=== PATIENT | female | born 1945 | race Caucasian/White ===

== ENCOUNTER 2019-04-10 08:39 | Inpatient (IN) | payer OTHER, SELFPAY ==
[2019-03-31 14:02] VITALS: BMI 24.3
[2019-04-10] VITALS (21 sets, daily range): BP systolic 118–202; BP diastolic 63–105; PULSE 83–135; RESP 8–20; TEMP 36.2–36.6; O2SAT 93–100; BMI 24.0
--- NOTE | 2019-04-10 | DI.RAD.S_ITS ---
PROCEDURE: XR LUMBAR SPINE 2-3V INDICATIONS: L4-5, L5-S1 TLIF TECHNIQUE: Fluoroscopic images were obtained during an operative procedure and submitted for interpretation following the completion of the procedure. COMPARISON: None. FINDINGS: These fluoroscopic images were performed for intraoperative localization. On these images, bilateral pedicle screws are seen at the L4, L5, and S1 levels. Vertical fixation rods are seen. Disc spacers are seen at L4-L5 and L5-S1. Please correlate with intraoperative findings. IMPRESSION: Normal intraoperative examination. Dictated by: Luis Manuel Amador M.D. on 04/10/2019 at 14:54 Approved by: Luis Manuel Amador M.D. on 04/10/2019 at 15:02
[2019-04-10] MEDS: LACTATED RINGERS 1,000 ML 42 ML IV ×2 (09:00→12:29)
[2019-04-10] MEDS: ALBUTEROL/IPRATROPIUM 3 ML AMPUL INH (10:26)
--- NOTE | 2019-04-10 10:51 | PM.PREOP ---
Pre-operative Note Interval Note History & Physical reviewed/Exam performed by Physician: Yes Changes to H&P: No
[2019-04-10] MEDS: OXYMETAZOLINE NASAL SPRAY 30 ML 2 SPRAYS NASAL (11:14)
[2019-04-10] MEDS: CEFAZOLIN 2 GM/100 ML FROZ.PIGGY IV (11:23)
--- NOTE | 2019-04-10 12:07 | SUR.OPER ---
Prone on spine table, head in foam head support, padded chest and pelvic supports, gel pad at knees, lower legs supported by pillows; nipples, genitalia and toes free of pressure, arms secured on foam padded arm boards at <90 degrees abduction. Tape over blanket at thigh secured to table.
[2019-04-10] MEDS: BUPIVACAINE LIPOSOME 266 MG/20 ML VIAL INJ (12:14)
[2019-04-10] MEDS: BUPIVACAINE 0.25% W/ EPI 30 ML VIAL INJ (12:15)
--- NOTE | 2019-04-10 15:17 | P.OP_ITS ---
Operative Date/Time/Diagnoses Date of procedure: 04/10/19 Time of procedure: 11:55 Pre-op diagnosis: 1. L4-5, L5-S1 spinal stenosis 2. L4-5, L5-S1 spondylosis with radiculopathy Post-op diagnosis: same Procedure & Clinicians Procedure: 1. L4-5, L5-S1 Postero-lateral and posterior interbody fusion 2. L4-5, L5-S1 interbody cage placement. 3. L4-5, L5-S1 decompressive laminectomy with bilateral facetecomies 4. L4-5, L5-S1 Posterior segmental instrumentation 5. [place] of bone marrow from iliac crest 6. Utilization of microsurgical technique and operating microscope Same procedure as scheduled: Yes Indications: Patient has been having chronic back pain and worsening lumbar radiculopathy. Patient failed multiple conservative management with worsening pain weakness and numbness in her lower extremity. Patient has been having difficulty performing activity of daily living. After discussing risks benefits of treatment options, patient elected proceed with surgery. Surgeon: Vance Whiting Outreach Assistant: Fozia Nelson Click Yes if Unassisted: No Anesthesia Type: General Operative Notes Closure Type: primary Specimen(s): none sent Prosthetic devices, grafts, tissues, transplants, or devices: Globus revolve screws, Rise cages Applied: catheter Estimated Blood Loss (mL): 100 Blood products transfused: none Procedure in detail: Patient was seen in the preoperative area. Risks and benefits of the surgery was discussed with the patient. Informed consent was obtained from the patient and placed in the chart. Surgical site was marked. Patient was taken to the operative room. General anesthesia was administered. Prophylactic antibiotic was given to the patient less than 30 min before the incision was made. Patient was placed into a prone position on the [place]gil table. Patient's back was then prepped and draped in the sterile fashion. Time- out was performed at this time. Using AP and lateral C-arm imaging the interval between L4-S1 was identified and marked on patient's back. A 2 inch incision 2 in from midline was made on the left side first. The fascia was incised in line with skin incision. Globus MARS retractors was placed inside the incision and docked onto the L4 and L5 lamina. Using microsurgical technique and operating microscope, a L4 and L5 laminectomy and L4-5 L5-S1 facetectomy was performed using a [place] rongeur. Patient was found have significant central and neural foramen stenosis at both levels which was fully decompressed after the laminectomy facetectomy was completed. During the process of decompression more than 75% of bilateral L4-5 L5-S1 facets were r emoved in order to decompress the spinal canal and the lateral recess. The L4-5 L5-S1 level was grossly unstable after the decompression was completed and requiring the fusion procedure. The disc space at L4-5, L5-S1 was identified. And a total diskectomy was performed at L4-5, L5-S1 level. The endplates were decorticated using a rasp and shaver. The total diskectomy and decortication was performed at L4-5, L5-S1 level in order to to accomplish a L4-5, L5-S1 fusion. The local bone from the laminectomy and facetectomy was saved for local bone grafting. After the total diskectomy and decortication was completed, Bio4 bone graft material was combined with local bone that was harvested earlier. At this time, a separate skin is incision was made over the iliac crest. A Jamshidi needle was inserted into the iliac crest through a separate skin incision. 5 cc of bone marrow aspiration was obtained through the separate skin incision using a Jamshidi needle from the iliac crest. The bone marrow aspiration was combined with local bone and the Bio4 bone grafting material. The bone grafting material was placed into the L4-5, L5-S1 interbody space along with two cages, one expandable cage at each level. The cages were expanded to their maximum height using the torque limiting screwdriver. At this time a mirror image incision was made on the right side. The fascia was incised in line with the skin incision. Globus MARS retractor was inserted and docked onto the L4-5, L5-S1 posterolateral gutter. Using the power drill, posterior-lateral decortication was performed at L4-5, L5-S1 level until bleeding cortical bone was identified. The remaining bone grafting material was placed into the L4-5 L5-S1 posterior lateral gutter he order to accomplish posterolateral fusion at the L4-5 L5-S1 levels. Using the double C-arm technique, pedicle screws were placed into the L4, L5, S1 pedicles bilaterally. This was done by placing the Jamshidi needle into the pedicles, then placing the guidewires over the Jamshidi needle, and finally placing the cannulated screws over the guidewires bilaterally. After the pedicle screws were placed, 2 titanium rods was locked into the heads of the pedicle screws using locking caps and torque limiting screwdriver. Total 6 pedicles screws were placed. After all the hardware was placed, and confirmed with AP and lateral C-arm imaging, the wound was then irrigated with sterile normal saline and packed with Ray-Khoa gauze for 3 min to accomplish hemostasis. After the gauze was removed the deep fascia was closed with #1 Vicryl suture. The subcutaneous layer was closed with 2-0 Vicryl. The skin was closed with skin sade. Patient tolerated the procedure well. There were no complications.
[2019-04-10] MEDS: HYDROMORPHONE 2 MG INJ IV ×4 (15:27→15:42)
--- NOTE | 2019-04-10 15:34 | SUR.PHASEI ---
Airway out [id number]
[2019-04-10] MEDS: LORazepam 2 MG/ML INJ 0.25 MG IV (15:51)
--- NOTE | 2019-04-10 15:53 | SUR.PHASEI ---
Medicated with dilaudid and lorazepam.
--- NOTE | 2019-04-10 16:53 | SUR.PHASEI ---
Bedside report given to Walter Fierro. Transferred care of pt to Walter Fierro at this time in stable condition. pt appears comfortable at this time. pt arousable to voice when spoken to.
[2019-04-10] MEDS: ALBUTEROL 2.5 MG/3 ML NEB (ADULT) INH (17:13)
--- NOTE | 2019-04-10 18:21 | PC.NURSE ---
Addendum entered by Ileana Ferris R.N. 04/10/19 20:31: Nurse practioner updated on WBC and Lactate. Awaiting new orders. Addendum entered by Ileana Ferris R.N. 04/10/19 19:51: 1850 addendum - ABG also drawn during rapid response, Dr. Curtis saw results. 1944 - Patient 94% on Room air. Addendum entered by Ileana Ferris R.N. 04/10/19 19:36: 1850 - Patient noted to have change in breathing and retractions. Also was desatting to 88% on 6L simple mask 50%. Respiratory therapist called to assess patient. Patient unresponsive to sternal rubs. Pupils pinpoint. Last reported dilaudid given in PACU at 1542 and ativan in PACU at 1551. Rapid response called at 1854. Dr. Curtis responded to bedside. Order received for 2MG Narcan which was immediately given IV. Orders also received for 1L NS bolus. EKG, labs, and chest x ray completed per Dr. Curtis's orders. Patient hypertenisve and tachycardic. Patient awake and pupils now equal, reactive and 3mm. Alert and oriented, but complaining of pain to back. Physician visualized chest x ray and EKG. ST depression noted in EKG. Dr. Jalloh called and updated on episode. Dr. Jalloh and Dr. Curtis discussed situation on phone with eachother. 1944 - Patient now normotensive and heart rate 104. Discussed pain medication options with Dr. Curtis. Stated ok to give IV dilaudid as ordered now and to start PO pain meds. at bedside throughout. Original Note: 1744 - Patient brought to room 103 in bed from PACU by nursing staff. Patient very drowsy, but awakens appropriately when spoken to. 92% on 6L O2 via mask. Oriented to room and call light, call light within reach and bed alarm on. Family member at bedside.
[2019-04-10] MEDS: SODIUM CHLORIDE 0.9% 1,000 ML 100 ML IV (18:32)
[2019-04-10] MEDS: NALOXONE 1 MG/ML SYRINGE 2 MG IV (19:01)
--- NOTE | 2019-04-10 19:03 | DI.RAD.S_ITS ---
PROCEDURE: XR CHEST 1V INDICATIONS: breathing issues after surgery TECHNIQUE: One view of the chest was acquired. COMPARISON: [facility], CR, XR CHEST 2VW, 11/25/2015, 16:15. FINDINGS: Surgical changes and devices: None. Lungs and pleura: Lungs are clear. There is hyperinflation of the lungs with flattening of the hemidiaphragms compatible with COPD. No pleural effusions or pneumothorax. Mediastinum: Mediastinal contours appear normal. Heart size is normal. Bones and chest wall: No suspicious bony lesions. Overlying soft tissues appear unremarkable. IMPRESSION: 1. No acute cardiopulmonary disease. 2. Findings compatible with COPD redemonstrated. Dictated by: Tyler Almazan M.D. on 04/10/2019 at 19:44 Approved by: Tyler Almazan M.D. on 04/10/2019 at 19:45
[2019-04-10] MEDS: SODIUM CHLORIDE 0.9% 1,000 ML 1000 ML IV ×2 (19:10→21:26)
[2019-04-10 19:16] LABS: Fractionated Inspired Oxygen 50; HCO3 ABG 24 mmol/L (22-26); Oxygen Saturation ABG 96 % (95-100); PCO2 ABG 69.3 mmHg (35-45); PO2 ABG 106 mmHg (80-100); TCO2 ABG 26 mmol/L (21-31); pH ABG 7.15 (7.35-7.45)
[2019-04-10 19:29] LABS: BUN Creatinine Ratio 23.3 (6-22); Blood Urea Nitrogen 21 mg/dL (7-17); Carbon Dioxide 25 mmol/L (22-32); Chloride 104 mmol/L (98-107); Creatine Kinase 469 U/L (30-135); Estimated Glomerular Filt Rate > 60.0 mL/min (>60); Glucose 235 mg/dL (80-110); HEMOLYSIS < 15 (0-50); Potassium 4.2 mmol/L (3.4-5.1); Sodium 140 mmol/L (137-145)
[2019-04-10 19:34] LABS: Hematocrit 42.3 % (36-46); Hemoglobin 13.7 g/dL (12.0-16.0); Mean Corpuscular HGB Conc 32.3 % (30-36); Mean Corpuscular Volume 86.7 fL (80-100); Platelet Count 351 X10^3/uL (150-400); Red Blood Cell Count 4.87 X10^6/uL (4.0-5.2); Red Cell Distribution Width 12.6 % (11.6-14.8); White Blood Cell Count 28.7 X10^3/uL (4.5-11.0)
[2019-04-10 19:35] LABS: Add Manual Diff / Slide Review YES
[2019-04-10] MEDS: OXYCODONE IR 5 MG TABLET 10 MG PO (19:37)
[2019-04-10] MEDS: HYDROMORPHONE 1 MG INJ 0.5 MG IV (19:37)
[2019-04-10 19:40] LABS: Troponin I < 0.012 ng/mL (0.01-0.034)
[2019-04-10 19:43] LABS: CKMB % Relative Index 1.4 % (1.5-5.0)
[2019-04-10 20:01] LABS: Neutrophils Absolute Manual 23821 /uL (3000-5900); Total Cells Counted 100
[2019-04-10 20:02] LABS: Anisocytosis 1+; Poikilocytosis 1+; Tear Drop Cells 1+
--- NOTE | 2019-04-10 20:13 | PM.CN ---
History of Present Illness Consult details Date Patient Seen: 04/10/19 Time Patient Seen: 19:00 Chief complaint: Translaminar Interbody Fusion/Laminotomy Reason for consult: rapid response team for acute hypoxemic hypercarbic respiratory failure Requesting provider: Vance Whiting Narrative: Yane Scales is a 73 year old female with a PMH of arthritis, HLD, depression, hypothyroidism who underwent lumbar laminectomy and fusion earlier today. Patient had large amounts of opiates during the procedure per report and following surgery she remained sleepy but she was hemodynamically stable and transferred to the hospital floor uneventfully. P[employer] B[employer] LADLE was called around 7pm after patient had a change in her breathing pattern where she became agonal. Upon arrival patient was not alert, she was tachycardic (sinus) into the 130s and hypertensive, she was saturating in the upper 90s on a mask. She was bradypnic and breathing appeared agonal. Her breath sounds were diminished and there were fine bibasilar crackles bilaterally. She was not responsive and her pupils were pinpoint. She received Narcan with rapid improvement in mental status and breathing. ABG showed a profound respiratory acidosis. Basic lab evaluation was sent. EKG showed sinus tachycardia with previous RBBB, there appeared to be possible ST depressions in the anterior leads that were new from previous examinations. I ordered her for a bolus of fluid and her HR and BP improved, and on telemetry there appeared to be improvement in the ST depressions with improvement in tachycardia. When patient was more alert, she denied any chest pain, pressure, shortness of breath. She has been having a runny nose and recent upper respiratory symptoms as well as a non-productive cough prior to her surgery today. Her initial lab evaluation shows a WBC of 28.7, plt 351. ABG showed pH of 7.15 with PCO2 of 69. Lactate of 3. Negative troponin and glucose of 235. CXR showed no acute pulmonary process but noted redemonstration of COPD. [facility] Medical History (Updated 03/31/19 @ 14:19 by Deedee Perez RN) Arthritis (Acute) Back pain (Acute) Depression (Acute) Foot fracture, right (Acute ~2008) GERD (gastroesophageal reflux disease) (Acute) HLD (hyperlipidemia) (Acute) Hypothyroid (Acute) Influenza (Acute ~2018) RBBB (right bundle branch block) (Acute) Sciatica (Acute) Surgical History (Updated 03/31/19 @ 14:19 by Deedee Perez RN) History of photorefractive keratectomy (PRK) (Acute) Social History household members: spouse Smoking Status: Former smoker alcohol intake: current Meds Home Medications and Allergies Home Medications Medication Instructions Recorded Confirmed Type acetaminophen [Tylenol Arthritis 1,300 mg PO BID 03/31/19 03/31/19 History Pain] atorvastatin 10 mg PO BEDTIME 03/31/19 03/31/19 History celecoxib 200 mg PO DAILY 03/31/19 04/10/19 History levothyroxine 75 mcg PO BEDTIME 03/31/19 03/31/19 History venlafaxine 37.5 mg PO BEDTIME 03/31/19 03/31/19 History Allergies Allergy/AdvReac Type Severity Reaction Status Date / Time tetracycline Allergy Severe Hives Verified 04/10/19 09:19 Review of Systems Review of Systems ROS Unobtainable: All systems reviewed & are unremarkable except as noted in HPI and below Exam Vital Signs (past 8 hours): - 04/10/19 15:09 04/10/19 15:14 04/10/19 15:19 Temperature 97.1 F L Pulse Rate 86 85 87 Respiratory Rate 12 11 L 12 Blood Pressure 142/71 H 133/71 139/80 Pulse Oximetry 95 95 96 04/10/19 15:24 04/10/19 15:38 04/10/19 15:44 Temperature 97.9 F Pulse Rate 94 H 96 H 93 H Respiratory Rate 10 L 13 10 L Blood Pressure 155/64 H 145/82 H Pulse Oximetry 95 100 96 04/10/19 15:58 04/10/19 16:04 04/10/19 16:19 Temperature 97.7 F Pulse Rate 91 H 87 92 H Respiratory Rate 10 L 9 L 8 L Blood Pressure 137/63 118/76 150/78 H Pulse Oximetry 93 98 98 04/10/19 16:34 04/10/19 16:49 04/10/19 17:05 Temperature Pulse Rate 97 H 100 H 109 H Respiratory Rate 9 L 10 L 15 Blood Pressure 141/72 H 137/88 140/75 Pulse Oximetry 96 96 96 04/10/19 17:20 04/10/19 17:30 04/10/19 18:10 Temperature 97.6 F 97.6 F Pulse Rate 105 H 112 H 110 H Respiratory Rate 12 11 L 10 L Blood Pressure 137/80 124/86 157/91 H Pulse Oximetry 94 96 95 04/10/19 18:30 04/10/19 19:02 04/10/19 19:10 Temperature 97.4 F L Pulse Rate 113 H 135 H 125 H Respiratory Rate 15 Blood Pressure 179/91 H 202/105 H 144/81 H Pulse Oximetry 93 04/10/19 19:27 Temperature Pulse Rate 105 H Respiratory Rate 20 Blood Pressure 136/79 Pulse Oximetry 93 Oxygen Delivery Method Simple Mask Oxygen Flow Rate 0 Narrative Exam Narrative: GENERAL APPEARANCE: Well developed, well nourished, groggy female. SKIN: Inspection of the skin reveals no rashes, ulcerations or petechiae. HEENT: PERRL after narcan, prior to narcan pinpoint and minimally reactive. Dry oral mucosa. NECK: Supple and symmetric. There was no thyroid enlargement, and no tenderness, or masses were felt. CHEST: Normal AP diameter and normal contour without any kyphoscoliosis. LUNGS: Auscultation of the lungs revealed no wheezes, rhonchi. There are fine bibasilar crackles bilaterally in the bases. CARDIOVASCULAR: Tachycardic, with regular rhythm. Soft 2/6 systolic murmur appreciated. ABDOMEN: Soft and nontender with normal bowel sounds. No ascites was noted. MUSCULOSKELETAL: There was no tenderness or effusions noted. Muscle strength and tone were normal. EXTREMITIES: No cyanosis, clubbing or edema. NEUROLOGIC: Alert. Normal affect. Objective Labs Result Diagrams: 04/10/19 19:10 04/10/19 19:10 Labs: Laboratory Results - last 24 hr 04/10/19 04/10/19 04/10/19 18:10 18:59 19:10 WBC 28.7 H RBC 4.87 Hgb 13.7 Hct 42.3 MCV 86.7 MCH 28.0 MCHC 32.3 RDW 12.6 Plt Count 351 Neut % (Auto) Not Reportable Lymph % (Auto) Not Reportable [place] % (Auto) Not Reportable Eos % (Auto) Not Reportable Baso % (Auto) Not Reportable Lymph # (Auto) Not Reportable [place] # (Auto) Not Reportable Baso # (Auto) Not Reportable Total Counted 100 Seg Neutrophils % 83.0 H Lymphocytes % (Manual) 11.0 L Monocytes % (Manual) 4.0 Eosinophils % (Manual) 2.0 Neutrophils # (Manual) 80735 H RBC Morphology See below Poikilocytosis 1+ H Anisocytosis 1+ H Tear Drop Cells 1+ H ABG pH 7.15 L* ABG pCO2 69.3 H* ABG pO2 106 H ABG HCO3 24 ABG Total CO2 26 ABG O2 Saturation 96 ABG Base Excess -5.0 L FiO2 50 Sodium Potassium Chloride Carbon Dioxide BUN Creatinine Estimated GFR BUN/Creatinine Ratio Glucose Lactate Calcium Total Creatine Kinase CK-MB (CK-2) CK-MB (CK-2) Rel Index Troponin I Nasal Screen MRSA (PCR) Negative for mrsa 04/10/19 04/10/19 19:10 19:10 WBC RBC Hgb Hct MCV MCH MCHC RDW Plt Count Neut % (Auto) Lymph % (Auto) [place] % (Auto) Eos % (Auto) Baso % (Auto) Lymph # (Auto) [place] # (Auto) Baso # (Auto) Total Counted Seg Neutrophils % Lymphocytes % (Manual) Monocytes % (Manual) Eosinophils % (Manual) Neutrophils # (Manual) RBC Morphology Poikilocytosis Anisocytosis Tear Drop Cells ABG pH ABG pCO2 ABG pO2 ABG HCO3 ABG Total CO2 ABG O2 Saturation ABG Base Excess FiO2 Sodium 140 Potassium 4.2 Chloride 104 Carbon Dioxide 25 BUN 21 H Creatinine 0.90 Estimated GFR > 60.0 BUN/Creatinine Ratio 23.3 H Glucose 235 H Lactate 3.0 H Calcium 8.0 L Total Creatine Kinase 469 H CK-MB (CK-2) 6.70 H CK-MB (CK-2) Rel Index 1.4 L Troponin I < 0.012 Nasal Screen MRSA (PCR) Assessment & Plan Assessment & Plan narrative: Yane Scales is a 73 year old female with a PMH of arthritis, HLD, depression, hypothyroidism who underwent lumbar laminectomy and fusion earlier today, P[employer] B[employer] LADLE was called for change in her respiratory status. She was likely over-sedated with medications possibly with underlying COPD and recent URI symptoms which caused her to become hypercarbic and hypoxemic. She improved rapidly with narcan. 1. Acute hypercarbic respiratory failure - ABG with profound respiratory acidosis secondary to hypercarbia from likely oversedation after surgery. She may have underlying COPD and chronic hypercarbic respiratory failure but this is not known and patient does not have a history of known COPD. Her respiratory status improved after narcan. She has recent URI symptoms and other than leukocytosis no other symptoms of recent pneumonia and chest xr is unremarkable. - Repeat ABG in one-two hours after narcan to see if improvement in pCO2. - oxygen titration to 88-92% only - continue to follow CBC as this may be reactive to the respiratory event - Respiratory eval and treat - consider outpatient PFTs for COPD diagnosis. - obtain respiratory panel 2. s/p lumbar spinal surgery - limit opiates to dilaudid 0.5 mg prn and prn oxycodone oral. - would hold benzodiazepines 3. Leukocytosis, acute - likely reactive secondary to respiratory failure. No evidence of PNA on CXR. - continue to follow CBC - will add procalcitonin to labs 4. tachycardia, acute - likely secondary to hypovolemia after operative interventions. She had ST depressions on EKG that seemed to improve on telemetry. This is likely indicative of demand due to tachycardia. She denied chest pain after narcan and this improved. - repeat EKG to see if resolution of ST depression. - repeat troponin to ensure no demand ischemia / type II AL despite initial troponin as this will take a few hours to peak after the event. - consider outpatient stress testing given tachycardia induced ST depressions and no peaked troponins. - continue IV fluids overnight after initial bolus given. Medicine service will continue to follow.
[2019-04-10] MEDS: ACETAMINOPHEN 325 MG TABLET 650 MG PO (20:15)
[2019-04-10] MEDS: hydrOXYzine pamoate 25 MG CAPSULE PO (20:15)
[2019-04-10] MEDS: ATORVASTATIN 10 MG TABLET PO (20:18)
[2019-04-10] MEDS: LEVOTHYROXINE 75 MCG TABLET PO (20:18)
[2019-04-10] MEDS: VENLAFAXINE 37.5 MG TABLET PO (20:19)
[2019-04-10 20:31] LABS: Fractionated Inspired Oxygen 21; HCO3 ABG 19 mmol/L (22-26); Oxygen Saturation ABG 93 % (95-100); PCO2 ABG 27.7 mmHg (35-45); PO2 ABG 62 mmHg (80-100); TCO2 ABG 20 mmol/L (21-31); pH ABG 7.44 (7.35-7.45)
[2019-04-10 21:18] LABS: Reflexed Lactate in 2 Hours Y
[2019-04-10 21:21] LABS: Magnesium 1.9 mg/dL (1.6-2.3)
[2019-04-10 21:24] LABS: C-Reactive Protein Quant 0.7 mg/dL (<1.0)
[2019-04-10 21:42] LABS: Bacteria Urine None Seen
[2019-04-10 21:43] LABS: Appearance Urine UA CLEAR; Bilirubin Urine UA NEGATIVE (NEGATIVE); Glucose Urine UA TRACE g/dL (Negative); Ketones Urine UA NEGATIVE (NEGATIVE); Leukocyte Esterase Urine UA NEGATIVE (NEGATIVE); Nitrite Urine UA NEGATIVE (Negative); Occult Blood Urine UA 3+ (Negative); Protein Urine UA NEGATIVE (Negative); Urobilinogen Urine UA 0.2 E.U./dL (0.2)
[2019-04-10 21:45] LABS: pH Urine UA 5.5 (4.5-8.0)
[2019-04-10 21:48] LABS: Color Urine UA Straw
[2019-04-10 21:49] LABS: Culture Indicated Urine Cult Not Indicated; RBC Urine 0-1/HPF (0-5/HPF); WBC Urine 30-100/HPF (0-5/HPF)
--- NOTE | 2019-04-10 22:04 | PC.NURSE ---
Pain assessment post opioid reversal: P: Patient stated pain was at a 9 on the pain scale post opioid reversal. She was visibly shaking and showing signs of extreme pain. I: non pharmaceutical methods were attempted, such as turning off the lights, playing music, repositioning, and distraction techniques. After five minutes of this, the patient stated, this is not working, I need something for the pain. This student nurse and the registered nurse gave the patient 25 mg PO Vistaril and 650 mg PO Tylenol. E: The patient began to show relief and fell asleep approximately 45 mins later. She rated her pain at a 7 at 2018. Safety: Bed is low and locked and the patients call light is within reach. She has been advised to call before getting out of bed and if she needs anything.
[2019-04-10 22:23] LABS: Procalcitonin < 0.05 ng/mL (<0.5)
[2019-04-10 23:05] LABS: Adenovirus Not Detected (Not Detect); Coronavirus 229E Not Detected (Not Detect); Coronavirus HKU1 Not Detected (Not Detect); Coronavirus NL 63 Not Detected (Not Detect); Coronavirus OC43 Not Detected (Not Detect)
[2019-04-10 23:06] LABS: Bordetella pertussis Not Detected (Not Detect); Chlamydophila pneumoniae Not Detected (Not Detect); Human Metapneumovirus Not Detected (Not Detect); Human Rhinovirus/Enterovirus Detected (Not Detect); Influenza A Not Detected (Not Detect); Influenza B Not Detected (Not Detect); Mycoplasma pneumoniae Not Detected (Not Detect); Parainfluenza Virus 1 Not Detected (Not Detect); Parainfluenza Virus 2 Not Detected (Not Detect); Parainfluenza Virus 3 Not Detected (Not Detect); Parainfluenza Virus 4 Not Detected (Not Detect); Respiratory Syncytial Virus Not Detected (Not Detect)
[2019-04-11] VITALS (16 sets, daily range): BP systolic 110–151; BP diastolic 48–81; PULSE 88–101; RESP 10–21; TEMP 36.8–38.3; O2SAT 88–97
--- NOTE | 2019-04-11 00:18 | PC.NURSE ---
Received patient asleep in bed. Pt easily awakens to voice. A/O X 3 in NAD. Pleasant and calm, talkative with staff. C/O pain 3/10 - tolerable. Repositioned for comfort. VSS, afebrile. Tele ST - low 100's. Sp02 95% 2LNC, breathing equal and unlabored. Back dressing CDI. CMS intact, reports baseline pre-operative numbness to lower extremities unchanged. Repeat lactic trending down. Call light in reach.
[2019-04-11 01:31] LABS: Reflexed Lactate in 2 Hours Y
[2019-04-11 02:05] LABS: Lactate 2HR (Lactic Acid Rflx) 1.7 mmol/L (0.7-2.1)
[2019-04-11] MEDS: SODIUM CHLORIDE 0.9% 1,000 ML 125 ML IV (04:22)
[2019-04-11] MEDS: OXYCODONE IR 5 MG TABLET 10 MG PO ×4 (04:24→20:36)
[2019-04-11 05:03] LABS: Add Manual Diff / Slide Review NO; Basophils Absolute Auto 0 /uL (0-100); Eosinophils Absolute Auto 0 /uL (0-450); Hematocrit 36.5 % (36-46); Hemoglobin 12.1 g/dL (12.0-16.0); Lymphocytes Absolute Auto 1500 /uL (1100-4500); Lymphocytes Percent Auto 8.9 % (25-40); Mean Corpuscular HGB Conc 33.1 % (30-36); Mean Corpuscular Hemoglobin 28.1 PG (26-34); Mean Corpuscular Volume 84.9 fL (80-100); Monocytes Absolute Auto 1100 /uL (0-900); Monocytes Percent Auto 6.9 % (3-14); Neutrophils Absolute Auto 13800 /uL (1500-7000); Neutrophils Percent Auto 84.2 % (50-75); Platelet Count 247 X10^3/uL (150-400); Red Cell Distribution Width 12.3 % (11.6-14.8); White Blood Cell Count 16.4 X10^3/uL (4.5-11.0)
[2019-04-11 05:09] LABS: BUN Creatinine Ratio 18.8 (6-22); Blood Urea Nitrogen 15 mg/dL (7-17); Calcium 7.4 mg/dL (8.4-10.2); Carbon Dioxide 28 mmol/L (22-32); Chloride 108 mmol/L (98-107); Estimated Glomerular Filt Rate > 60.0 mL/min (>60); Glucose 118 mg/dL (80-110); HEMOLYSIS < 15 (0-50); Lactate (Lactic Acid) 1.2 mmol/L (0.7-2.1); Potassium 4.3 mmol/L (3.4-5.1); Sodium 142 mmol/L (137-145)
[2019-04-11 05:20] LABS: Troponin I 0.048 ng/mL (0.01-0.034)
[2019-04-11 06:01] LABS: Procalcitonin 0.25 ng/mL (<0.5)
[2019-04-11] MEDS: hydrOXYzine pamoate 25 MG CAPSULE PO ×2 (10:58→20:36)
--- NOTE | 2019-04-11 11:06 | PT.IIE ---
Current Diagnoses Spondylolisthesis, lumbosacral region (04/10/19) Spinal stenosis, lumbar region without neurogenic claudication (04/10/19) Surgery Performed Operation Date: 04/10/19 10:45 Actual Procedures p L4-5,L5-S1 TLIF w/ posterior instrumentatoion - Vance Whiting MD Surgical History (Last Updated 03/31/19 @ 14:19 by Deedee Perez, RN) History of photorefractive keratectomy (PRK) (Acute) Medical History (Last Updated 03/31/19 @ 14:19 by Deedee Perez RN) Arthritis (Acute) Back pain (Acute) Depression (Acute) Foot fracture, right (Acute ~2008) GERD (gastroesophageal reflux disease) (Acute) HLD (hyperlipidemia) (Acute) Hypothyroid (Acute) Influenza (Acute ~2018) RBBB (right bundle branch block) (Acute) Sciatica (Acute) Physical Therapy Inpatient Evaluation/Re-Eval M1 PT/OT-IP Prior Functional Status Start: 04/11/19 10:36 Freq: NEEDED Status: Active Protocol: Document 04/11/19 09:40 (Rec: 04/11/19 11:05 [email or web address]) Medical Review Prior Functional Status Medical History Reviewed Yes Diet/Fluid Consistency Regular Communication no deficits noted. Able to make needs known. Mobility and Gait Pt stated she was independent for home and community mobility without AD. Bending over activities and walking uphill tend to be difficulty for her due to back pain. Activities of Daily Living and IADL's Pt was independent for all ADLs and IADLs without using AD. She is also able to drive. Social History Household Members spouse Living Arrangements House Number of Floors (Floors) Two Floors Number of Stairs To Enter/Railing? no MARÍA to front entrance 1STE from garage entrance Home Environment High Toilet,Walk in Shower, Built-In Shower Seat Home Equipment Front Wheel Walker,Straight Cane,Raised Toilet Seat w/ Armrests,Hand Held Shower,Grab Bars Near Toilet,Grab Bars In Shower Employment Status Retired Additional Social History Comment Pt lives with her who is also very active and independent. Pt states her will be able to assist if needed M2 PT-IP Current Condition Start: 04/11/19 10:36 Freq: NEEDED Status: Active Protocol: Document 04/11/19 09:40 (Rec: 04/11/19 11:05 [email or web address]) Physical Therapy Current Condition Current Condition Evaluation Date 04/11/19 Treatment Diagnosis L4-S1 TLIF, acute hypercarbic resp failure, decreased activity tolerance Onset Date 04/10/19 Precautions Lumbar Precautions Log Roll,No Twisting,Limit Bending,Lifting Restriction of 10 lbs,Gait Belt above Incisional Area Other Precautions Droplet precaution Weight Bearing Status Weight Bearing Status Full Weight Bearing M3 PT-IP Subjective Start: 04/11/19 10:36 Freq: NEEDED Status: Active Protocol: Document 04/11/19 09:40 HH (Rec: 04/11/19 11:05 [email or web address]) Subjective Physical Therapy Visit Type Type Initial Evaluation Visit Start Time 09:40 Visit Stop Time 10:15 Total Visit Minutes 35 Notes Per EMR, pt had a profound respiratory acidosis after sx and rapid response was called last night. Pt is currently evolving and becoming stable with VSS. Pt has 3L O2 upon assessment. Requested to get OOB for mobility. co-tx with SPT Mark. Number of ETYMOLOGY PROFESSOR Visits 0 Physical Therapy Visit Comments Patient Comments I feel a lot better today. Patient Goals To return home with . Therapy Pain Assessment Pain When Pain Assessed During Mobility Pain Present Pain Present Pain Reported Location lower back -bilateral legs Intensity 3 Scale Used Leonard-Burger (Faces) Description Acute Pain Management Techniques Modification of Treatment,Re- positioning,Timing of Activity with Medications M4 PT-IP Mobility and Gait Start: 04/11/19 10:36 Freq: NEEDED Status: Active Protocol: Document 04/11/19 09:40 HH (Rec: 04/11/19 11:05 [email or web address]) PT-Bed Mobility Assessment Rolling Type of Rolling Log Rolling,Roll to Right Level of Assist Contact Guard Assistance Supine to Sit Supine to Sit Minimal Assistance,Bedrails Scooting Scooting to Edge of Bed Contact Guard Assistance PT-Transfer Assessment Sit to and From Stand Sit to and from Stand Contact Guard Assistance,1 Person Assistance Equipment Transfer Assistive Device Gait Belt,Front Wheeled Walker Orthotic/Prosthetic Devices or Brace: No Transfers Transfer Destination Bed,Chair,Toilet Transfer Technique Stand Step Pivot Transfer Ability Level of Assist Contact Guard Assistance,Use of Upper Extremities Comments Mobility Comments Pt's BP maintained at 120-130s / 60s, HR 90-110 , SpO2= 88-94 % during mobility. Pt was in bed upon assessment who appears to be AxO x4. Educated pt on log roll method and post op precautions. Pt then completed log roll to R and sat up with min A. Pt demonstrates mild difficulty to push off through bed rail and bed from sidelying position (took about 10 seconds). She then scooted towards EOB and stood up with CGA and FWW. Pt also able to transfer to elevated toilet seat with CGA and proper hand placements on armrests. Pt demonstrates good descent from stand to sit with cueing without any signs of LOB. Left pt on the chair with call light and table within reach at the end of session. Gait Assessment Gait Gait Assistance Required: Standby Assistance Distance (Feet) 80 Able to Maintain Weight Bearing Status Yes During Gait Assistive Devices Assistive Device Gait Belt,Front Wheeled Walker Orthotic/Prosthetic Devices or Brace: No Gait Deviations General Gait Pattern Antalgic,Decreased Stride Length,Decreased Feet Clearance Factors Limiting Gait Function Factors Limiting Gait Function Decreased Activity Tolerance, Decreased Strength,Limited Range of Motion,Pain Comments Gait Comments Pt amb from bedside to bathroom then out to hallway for 1 lap. Pt was able to amb with FWW and SBA. She appears very steady and no signs of LOB. She stated that she overall amb slower than her baseline due to pain at this pain. Stair Climbing Assessment Comments Stair Climbing Comments did not assess PT-Balance Assessment Sitting Balance and Reactions Static Sitting Balance Ability Normal Dynamic Sitting Balance Ability Good Standing Balance and Reactions Static Standing Balance Ability Good Dynamic Standing Balance Ability Good Device Used FWW M5 PT-IP Objective Assessments Start: 04/11/19 10:36 Freq: NEEDED Status: Active Protocol: Document 04/11/19 09:40 (Rec: 04/11/19 11:05 [email or web address]) Orientation Orientation/Cognition Level of Alertness Alert Orientation Name,Age,Birthday,Month,Date, Year,Day of Week,Place, Situation Language Function Ability No Deficits Noted Safety Awareness Understands Safety Issues Memory Description Short Term Impaired Comments Pt needed multiple reminders of post op precautions (BLT) , but she was able to state I have to stay up straight Gross Range of Motion Upper Extremity ROM Assessment Within Functional Limits Lower Extremity ROM Assessment Within Functional Limits Strength Upper Extremity Strength Assessment Within Functional Limits Lower Extremity Strength Assessment Bilaterally Impaired Hip 4/5 Knee 4/5 Coordination Assessment Gross Coordination Gross Coordination WNL Sensation Assessment Sensation Gross Sensation WNL Muscle Tone Muscle Tone WNL Yes M6 PT-IP Treatment Start: 04/11/19 10:36 Freq: NEEDED Status: Active Protocol: Document 04/11/19 09:40 HH (Rec: 04/11/19 11:05 [email or web address]) Physical Therapy Treatment Education Education Provided Precautions,Weight Bearing Status,Post-Op Packet,Safety Other Treatments Other Treatment Performed standing marching in place with FWW Adjust pt's FWW and SPC for mobility use M7 PT-IP Assessment and Plan Start: 04/11/19 10:36 Freq: NEEDED Status: Active Protocol: Document 04/11/19 09:40 HH (Rec: 04/11/19 11:05 HH [email or web address]) PT Summary Assessment and Plan Potential Rehabilitation Potential Excellent Status of Condition at Evaluation Evolving Summary Impairments Pain,ROM,Strength,Balance,Bed Mobility,Transfers,Gait, Activity Tolerance Assessment Summary Pt is low complexity s/p POD 2 with L4-S1 TLIF. Per EMR, pt had a acute hypercarbic respiratory failure ( respiratory acidosis ) after sx and rapid response was called last night. Pt is currently evolving and becoming stable with VSS. She does sound congested with a hoarse voice who reports she had a cold prior to sx. Pt has 3L O2 upon assessment. Pt did fairly well with mobility who needed min A for bed mobility but SBA/CGA for transfers and amb with FWW. Pt's BP maintains at 120-130s/ 60s; HR 90-110; SpO2 88-94% without NC. Pt does require multiple reminders for her post op precautions but she is aware to keep her back straight. Pt overall appears progressing well, along with adequate DMEs at home. Pt is expected to be d/c home with assistance once she is medically stable. CG training should also be conducted to pt 's safety at home prior to d/c . Goals Bed Mobility Goal Standby Assistance Transfer Goal Standby Assistance Gait Goal Standby Assistance Gait Distance 200 Days to Meet Goals 5 Frequency of Treatment Frequency Of Treatment Twice a Day Treatment Plan Physical Therapy Treatment Plan Bed Mobility Training,Transfer Training,Gait Training, Therapeutic Exercise,Balance Retraining,Post Op Education, Discharge Planning,Hot or Cold Pack,Neuromuscular Re-ed Other Recommendations and Next Treatment monitor VSS Focus review precautions mobility as marce CG training Recommendations To Nursing Amount of Assist Needed 1 Person Assist Discharge Recommendations PT Discharge Recommendations Home with Assistance
[2019-04-11 12:02] LABS: Troponin I 0.038 ng/mL (0.01-0.034)
--- NOTE | 2019-04-11 12:31 | P.PN_ITS ---
Subjective Subjective Date Patient Seen: 04/11/19 Time Patient Seen: 08:18 Interval history: POD 1 s/p TLIF with Dr. Whiting. Overnight patient had respiratory failure and was transferred to ICU, where she stabilized. Patient complains of pain in lower back, in incision site. Pain is well managed. Will mobilize with PT today. No other complaints. Patients states she had a cold before surgery. Patient denies fever, chills, nausea, vomiting, chest pain, shortness of breath, calf pain. Exam Vital Signs (past 8 hours): - 04/11/19 04:39 04/11/19 06:00 04/11/19 06:19 Temperature 98.2 F Pulse Rate Respiratory Rate Blood Pressure Pulse Oximetry 90 L 94 04/11/19 08:00 04/11/19 11:44 Temperature 98.7 F 100.0 F H Pulse Rate 95 H 100 H Respiratory Rate 15 21 Blood Pressure 136/76 110/52 L Pulse Oximetry 95 92 Oxygen Delivery Method Nasal Cannula Oxygen Flow Rate 3 Narrative Exam Narrative: 73 year old female is sitting comfortably in bed, in no apparent distress. Dressing CDI. Able to actively dorsiflex/plantar flex bl. Sensory function grossly intact to light touch in LE bl. Dorsalis pedis 2+ bl. Capillary refill LE bl. Calves warm, soft, compressible, nttp. Objective Labs Result Diagrams: 04/12/19 04:48 04/12/19 04:48 Labs: Laboratory Results - last 24 hr 04/10/19 04/10/19 04/10/19 18:10 18:59 19:10 WBC 28.7 H RBC 4.87 Hgb 13.7 Hct 42.3 MCV 86.7 MCH 28.0 MCHC 32.3 RDW 12.6 Plt Count 351 Neut % (Auto) Not Reportable Lymph % (Auto) Not Reportable [place] % (Auto) Not Reportable Eos % (Auto) Not Reportable Baso % (Auto) Not Reportable Neut # (Auto) Lymph # (Auto) Not Reportable [place] # (Auto) Not Reportable Eos # (Auto) Baso # (Auto) Not Reportable Total Counted 100 Seg Neutrophils % 83.0 H Lymphocytes % (Manual) 11.0 L Monocytes % (Manual) 4.0 Eosinophils % (Manual) 2.0 Neutrophils # (Manual) 23266 H RBC Morphology See below Poikilocytosis 1+ H Anisocytosis 1+ H Tear Drop Cells 1+ H ABG pH 7.15 L* ABG pCO2 69.3 H* ABG pO2 106 H ABG HCO3 24 ABG Total CO2 26 ABG O2 Saturation 96 ABG Base Excess -5.0 L FiO2 50 Sodium Potassium Chloride Carbon Dioxide BUN Creatinine Estimated GFR BUN/Creatinine Ratio Glucose Lactate Calcium Magnesium Total Creatine Kinase CK-MB (CK-2) CK-MB (CK-2) Rel Index Troponin I C-Reactive Protein Procalcitonin Urine Color Urine Appearance Urine pH Ur Specific [place] Urine Protein Urine Glucose (UA) Urine Ketones Urine Occult Blood Urine Nitrate Urine Bilirubin Urine Urobilinogen Ur Leukocyte Esterase Urine RBC Urine WBC Urine Bacteria Ur Culture Indicated? Nasal Screen MRSA (PCR) Negative for mrsa Chlamy pneumoniae PCR Adenovirus (PCR) B.parapertussis DNA PCR Coronavirus OC43 (PCR) Coronavirus HKU1 (PCR) Coronavirus 229E (PCR) Coronavirus NL63 (PCR) Human Metapneumovir PCR Influenza Type A (PCR) Influenza Type B (PCR) M. pneumoniae (PCR) Parainfluenza 1 (PCR) Parainfluenza 2 (PCR) Parainfluenza 3 (PCR) Parainfluenza 4 (PCR) RSV (PCR) Entero/Rhino (PCR) 04/10/19 04/10/19 04/10/19 19:10 19:10 19:10 WBC RBC Hgb Hct MCV MCH MCHC RDW Plt Count Neut % (Auto) Lymph % (Auto) [place] % (Auto) Eos % (Auto) Baso % (Auto) Neut # (Auto) Lymph # (Auto) [place] # (Auto) Eos # (Auto) Baso # (Auto) Total Counted Seg Neutrophils % Lymphocytes % (Manual) Monocytes % (Manual) Eosinophils % (Manual) Neutrophils # (Manual) RBC Morphology Poikilocytosis Anisocytosis Tear Drop Cells ABG pH ABG pCO2 ABG pO2 ABG HCO3 ABG Total CO2 ABG O2 Saturation ABG Base Excess FiO2 Sodium 140 Potassium 4.2 Chloride 104 Carbon Dioxide 25 BUN 21 H Creatinine 0.90 Estimated GFR > 60.0 BUN/Creatinine Ratio 23.3 H Glucose 235 H Lactate 3.0 H Calcium 8.0 L Magnesium Total Creatine Kinase 469 H CK-MB (CK-2) 6.70 H CK-MB (CK-2) Rel Index 1.4 L Troponin I < 0.012 C-Reactive Protein Procalcitonin < 0.05 Urine Color Urine Appearance Urine pH Ur Specific [place] Urine Protein Urine Glucose (UA) Urine Ketones Urine Occult Blood Urine Nitrate Urine Bilirubin Urine Urobilinogen Ur Leukocyte Esterase Urine RBC Urine WBC Urine Bacteria Ur Culture Indicated? Nasal Screen MRSA (PCR) Chlamy pneumoniae PCR Adenovirus (PCR) B.parapertussis DNA PCR Coronavirus OC43 (PCR) Coronavirus HKU1 (PCR) Coronavirus 229E (PCR) Coronavirus NL63 (PCR) Human Metapneumovir PCR Influenza Type A (PCR) Influenza Type B (PCR) M. pneumoniae (PCR) Parainfluenza 1 (PCR) Parainfluenza 2 (PCR) Parainfluenza 3 (PCR) Parainfluenza 4 (PCR) RSV (PCR) Entero/Rhino (PCR) 04/10/19 04/10/19 04/10/19 19:10 19:10 20:17 WBC RBC Hgb Hct MCV MCH MCHC RDW Plt Count Neut % (Auto) Lymph % (Auto) [place] % (Auto) Eos % (Auto) Baso % (Auto) Neut # (Auto) Lymph # (Auto) [place] # (Auto) Eos # (Auto) Baso # (Auto) Total Counted Seg Neutrophils % Lymphocytes % (Manual) Monocytes % (Manual) Eosinophils % (Manual) Neutrophils # (Manual) RBC Morphology Poikilocytosis Anisocytosis Tear Drop Cells ABG pH 7.44 ABG pCO2 27.7 L ABG pO2 62 L ABG HCO3 19 L ABG Total CO2 20 L ABG O2 Saturation 93 L ABG Base Excess -5.0 L FiO2 21 Sodium Potassium Chloride Carbon Dioxide BUN Creatinine Estimated GFR BUN/Creatinine Ratio Glucose Lactate Calcium Magnesium 1.9 Total Creatine Kinase CK-MB (CK-2) CK-MB (CK-2) Rel Index Troponin I C-Reactive Protein 0.7 Procalcitonin Urine Color Urine Appearance Urine pH Ur Specific [place] Urine Protein Urine Glucose (UA) Urine Ketones Urine Occult Blood Urine Nitrate Urine Bilirubin Urine Urobilinogen Ur Leukocyte Esterase Urine RBC Urine WBC Urine Bacteria Ur Culture Indicated? Nasal Screen MRSA (PCR) Chlamy pneumoniae PCR Adenovirus (PCR) B.parapertussis DNA PCR Coronavirus OC43 (PCR) Coronavirus HKU1 (PCR) Coronavirus 229E (PCR) Coronavirus NL63 (PCR) Human Metapneumovir PCR Influenza Type A (PCR) Influenza Type B (PCR) M. pneumoniae (PCR) Parainfluenza 1 (PCR) Parainfluenza 2 (PCR) Parainfluenza 3 (PCR) Parainfluenza 4 (PCR) RSV (PCR) Entero/Rhino (PCR) 04/10/19 04/10/19 04/10/19 21:20 21:20 21:20 WBC RBC Hgb Hct MCV MCH MCHC RDW Plt Count Neut % (Auto) Lymph % (Auto) [place] % (Auto) Eos % (Auto) Baso % (Auto) Neut # (Auto) Lymph # (Auto) [place] # (Auto) Eos # (Auto) Baso # (Auto) Total Counted Seg Neutrophils % Lymphocytes % (Manual) Monocytes % (Manual) Eosinophils % (Manual) Neutrophils # (Manual) RBC Morphology Poikilocytosis Anisocytosis Tear Drop Cells ABG pH ABG pCO2 ABG pO2 ABG HCO3 ABG Total CO2 ABG O2 Saturation ABG Base Excess FiO2 Sodium Potassium Chloride Carbon Dioxide BUN Creatinine Estimated GFR BUN/Creatinine Ratio Glucose Lactate 4.0 H Calcium Magnesium Total Creatine Kinase CK-MB (CK-2) CK-MB (CK-2) Rel Index Troponin I C-Reactive Protein Procalcitonin Urine Color Straw Urine Appearance Clear Urine pH 5.5 Ur Specific [place] 1.010 Urine Protein Negative Urine Glucose (UA) Trace H Urine Ketones Negative Urine Occult Blood 3+ H Urine Nitrate Negative Urine Bilirubin Negative Urine Urobilinogen 0.2 Ur Leukocyte Esterase Negative Urine RBC 0-1/hpf Urine WBC 30-100/hpf H Urine Bacteria None seen Ur Culture Indicated? Cult not indicated Nasal Screen MRSA (PCR) Chlamy pneumoniae PCR Not detected Adenovirus (PCR) Not detected B.parapertussis DNA PCR Not detected Coronavirus OC43 (PCR) Not detected Coronavirus HKU1 (PCR) Not detected Coronavirus 229E (PCR) Not detected Coronavirus NL63 (PCR) Not detected Human Metapneumovir PCR Not detected Influenza Type A (PCR) Not detected Influenza Type B (PCR) Not detected M. pneumoniae (PCR) Not detected Parainfluenza 1 (PCR) Not detected Parainfluenza 2 (PCR) Not detected Parainfluenza 3 (PCR) Not detected Parainfluenza 4 (PCR) Not detected RSV (PCR) Not detected Entero/Rhino (PCR) Detected H 04/10/19 04/11/19 04/11/19 23:30 01:45 04:40 WBC 16.4 H RBC 4.30 Hgb 12.1 Hct 36.5 MCV 84.9 MCH 28.1 MCHC 33.1 RDW 12.3 Plt Count 247 Neut % (Auto) 84.2 H Lymph % (Auto) 8.9 L [place] % (Auto) 6.9 Eos % (Auto) 0.0 L Baso % (Auto) 0.0 Neut # (Auto) 55581 H Lymph # (Auto) 1500 [place] # (Auto) 1100 H Eos # (Auto) 0 Baso # (Auto) 0 Total Counted Seg Neutrophils % Lymphocytes % (Manual) Monocytes % (Manual) Eosinophils % (Manual) Neutrophils # (Manual) RBC Morphology Poikilocytosis Anisocytosis Tear Drop Cells ABG pH ABG pCO2 ABG pO2 ABG HCO3 ABG Total CO2 ABG O2 Saturation ABG Base Excess FiO2 Sodium Potassium Chloride Carbon Dioxide BUN Creatinine Estimated GFR BUN/Creatinine Ratio Glucose Lactate 3.0 H 1.7 Calcium Magnesium Total Creatine Kinase CK-MB (CK-2) CK-MB (CK-2) Rel Index Troponin I C-Reactive Protein Procalcitonin Urine Color Urine Appearance Urine pH Ur Specific [place] Urine Protein Urine Glucose (UA) Urine Ketones Urine Occult Blood Urine Nitrate Urine Bilirubin Urine Urobilinogen Ur Leukocyte Esterase Urine RBC Urine WBC Urine Bacteria Ur Culture Indicated? Nasal Screen MRSA (PCR) Chlamy pneumoniae PCR Adenovirus (PCR) B.parapertussis DNA PCR Coronavirus OC43 (PCR) Coronavirus HKU1 (PCR) Coronavirus 229E (PCR) Coronavirus NL63 (PCR) Human Metapneumovir PCR Influenza Type A (PCR) Influenza Type B (PCR) M. pneumoniae (PCR) Parainfluenza 1 (PCR) Parainfluenza 2 (PCR) Parainfluenza 3 (PCR) Parainfluenza 4 (PCR) RSV (PCR) Entero/Rhino (PCR) 04/11/19 04/11/19 04/11/19 04:40 04:40 04:40 WBC RBC Hgb Hct MCV MCH MCHC RDW Plt Count Neut % (Auto) Lymph % (Auto) [place] % (Auto) Eos % (Auto) Baso % (Auto) Neut # (Auto) Lymph # (Auto) [place] # (Auto) Eos # (Auto) Baso # (Auto) Total Counted Seg Neutrophils % Lymphocytes % (Manual) Monocytes % (Manual) Eosinophils % (Manual) Neutrophils # (Manual) RBC Morphology Poikilocytosis Anisocytosis Tear Drop Cells ABG pH ABG pCO2 ABG pO2 ABG HCO3 ABG Total CO2 ABG O2 Saturation ABG Base Excess FiO2 Sodium 142 Potassium 4.3 Chloride 108 H Carbon Dioxide 28 BUN 15 Creatinine 0.80 Estimated GFR > 60.0 BUN/Creatinine Ratio 18.8 Glucose 118 H D Lactate 1.2 Calcium 7.4 L Magnesium Total Creatine Kinase CK-MB (CK-2) CK-MB (CK-2) Rel Index Troponin I C-Reactive Protein Procalcitonin 0.25 Urine Color Urine Appearance Urine pH Ur Specific [place] Urine Protein Urine Glucose (UA) Urine Ketones Urine Occult Blood Urine Nitrate Urine Bilirubin Urine Urobilinogen Ur Leukocyte Esterase Urine RBC Urine WBC Urine Bacteria Ur Culture Indicated? Nasal Screen MRSA (PCR) Chlamy pneumoniae PCR Adenovirus (PCR) B.parapertussis DNA PCR Coronavirus OC43 (PCR) Coronavirus HKU1 (PCR) Coronavirus 229E (PCR) Coronavirus NL63 (PCR) Human Metapneumovir PCR Influenza Type A (PCR) Influenza Type B (PCR) M. pneumoniae (PCR) Parainfluenza 1 (PCR) Parainfluenza 2 (PCR) Parainfluenza 3 (PCR) Parainfluenza 4 (PCR) RSV (PCR) Entero/Rhino (PCR) 04/11/19 04/11/19 04:40 11:25 WBC RBC Hgb Hct MCV MCH MCHC RDW Plt Count Neut % (Auto) Lymph % (Auto) [place] % (Auto) Eos % (Auto) Baso % (Auto) Neut # (Auto) Lymph # (Auto) [place] # (Auto) Eos # (Auto) Baso # (Auto) Total Counted Seg Neutrophils % Lymphocytes % (Manual) Monocytes % (Manual) Eosinophils % (Manual) Neutrophils # (Manual) RBC Morphology Poikilocytosis Anisocytosis Tear Drop Cells ABG pH ABG pCO2 ABG pO2 ABG HCO3 ABG Total CO2 ABG O2 Saturation ABG Base Excess FiO2 Sodium Potassium Chloride Carbon Dioxide BUN Creatinine Estimated GFR BUN/Creatinine Ratio Glucose Lactate Calcium Magnesium Total Creatine Kinase CK-MB (CK-2) CK-MB (CK-2) Rel Index Troponin I 0.048 H 0.038 H C-Reactive Protein Procalcitonin Urine Color Urine Appearance Urine pH Ur Specific [place] Urine Protein Urine Glucose (UA) Urine Ketones Urine Occult Blood Urine Nitrate Urine Bilirubin Urine Urobilinogen Ur Leukocyte Esterase Urine RBC Urine WBC Urine Bacteria Ur Culture Indicated? Nasal Screen MRSA (PCR) Chlamy pneumoniae PCR Adenovirus (PCR) B.parapertussis DNA PCR Coronavirus OC43 (PCR) Coronavirus HKU1 (PCR) Coronavirus 229E (PCR) Coronavirus NL63 (PCR) Human Metapneumovir PCR Influenza Type A (PCR) Influenza Type B (PCR) M. pneumoniae (PCR) Parainfluenza 1 (PCR) Parainfluenza 2 (PCR) Parainfluenza 3 (PCR) Parainfluenza 4 (PCR) RSV (PCR) Entero/Rhino (PCR) Assessment & Plan Post-op Postoperative Procedures: Procedures Operation Date: 04/10/19 10:45 Actual Procedures Side Surgeon p L4-5,L5-S1 TLIF w/ posterior instrumentatoion Vance Whiting MD Postoperative status narrative: Internal medicine was consulted and re commendations appreciated Patient will need to be considered medically stable before discharge Begin PT/OT Narcotics are being conservatively managed considering respiratory failure likely secondary to over medication Time Spent With Patient Time with patient: less than 15 minutes Quality VTE Deep Vein Thrombosis/Pulmonary Embolism Present on Admission: No
--- NOTE | 2019-04-11 14:05 | PT-IP ANOTE ---
Attempt to see pt but pt is sleeping soundly. Spoke to CHANTALE Isbell, pt has been amb within her room with 1pa with stable VSS. Recommended to let pt rest at this point. Will reattempt PT tomorrow am
--- NOTE | 2019-04-11 14:46 | P.PN_ITS ---
Subjective Subjective Date Patient Seen: 04/11/19 Interval history: The patient is a 73-year-old female who is status post T left who had rapid response called yesterday for agonal breathing. The patient was found to be in acute hypercapnic respiratory failure. She required oxygen and in a lock sewn rescue therapy for hypoventilation. Patient reports her pain is getting somewhat worse today. She does seem to have relief from oral pain medication. She denies any shortness of breath. She is awake and alert. She has had no respiratory difficulties today. She is off oxygen and saturating at 92% or above. Patient denies any chest pain. Exam Vital Signs (past 8 hours): - 04/11/19 08:00 04/11/19 11:44 04/11/19 14:34 Temperature 98.7 F 100.0 F H 98.7 F Pulse Rate 95 H 100 H Respiratory Rate 15 21 Blood Pressure 136/76 110/52 L Pulse Oximetry 95 92 Oxygen Delivery Method Nasal Cannula Oxygen Flow Rate 3 Narrative Exam Narrative: Pleasant female lying in bed in no obvious distress Lungs: Clear to auscultation Cardiac exam: Regular rate rhythm normal S1-S2 Abdomen: Soft and nontender Extremities: No edema Objective Labs Result Diagrams: 04/11/19 04:40 04/11/19 04:40 Labs: Laboratory Results - last 24 hr 04/10/19 04/10/19 04/10/19 18:10 18:59 19:10 WBC 28.7 H RBC 4.87 Hgb 13.7 Hct 42.3 MCV 86.7 MCH 28.0 MCHC 32.3 RDW 12.6 Plt Count 351 Neut % (Auto) Not Reportable Lymph % (Auto) Not Reportable [place] % (Auto) Not Reportable Eos % (Auto) Not Reportable Baso % (Auto) Not Reportable Neut # (Auto) Lymph # (Auto) Not Reportable [place] # (Auto) Not Reportable Eos # (Auto) Baso # (Auto) Not Reportable Total Counted 100 Seg Neutrophils % 83.0 H Lymphocytes % (Manual) 11.0 L Monocytes % (Manual) 4.0 Eosinophils % (Manual) 2.0 Neutrophils # (Manual) 83750 H RBC Morphology See below Poikilocytosis 1+ H Anisocytosis 1+ H Tear Drop Cells 1+ H ABG pH 7.15 L* ABG pCO2 69.3 H* ABG pO2 106 H ABG HCO3 24 ABG Total CO2 26 ABG O2 Saturation 96 ABG Base Excess -5.0 L FiO2 50 Sodium Potassium Chloride Carbon Dioxide BUN Creatinine Estimated GFR BUN/Creatinine Ratio Glucose Lactate Calcium Magnesium Total Creatine Kinase CK-MB (CK-2) CK-MB (CK-2) Rel Index Troponin I C-Reactive Protein Procalcitonin Urine Color Urine Appearance Urine pH Ur Specific [place] Urine Protein Urine Glucose (UA) Urine Ketones Urine Occult Blood Urine Nitrate Urine Bilirubin Urine Urobilinogen Ur Leukocyte Esterase Urine RBC Urine WBC Urine Bacteria Ur Culture Indicated? Nasal Screen MRSA (PCR) Negative for mrsa Chlamy pneumoniae PCR Adenovirus (PCR) B.parapertussis DNA PCR Coronavirus OC43 (PCR) Coronavirus HKU1 (PCR) Coronavirus 229E (PCR) Coronavirus NL63 (PCR) Human Metapneumovir PCR Influenza Type A (PCR) Influenza Type B (PCR) M. pneumoniae (PCR) Parainfluenza 1 (PCR) Parainfluenza 2 (PCR) Parainfluenza 3 (PCR) Parainfluenza 4 (PCR) RSV (PCR) Entero/Rhino (PCR) 04/10/19 04/10/19 04/10/19 19:10 19:10 19:10 WBC RBC Hgb Hct MCV MCH MCHC RDW Plt Count Neut % (Auto) Lymph % (Auto) [place] % (Auto) Eos % (Auto) Baso % (Auto) Neut # (Auto) Lymph # (Auto) [place] # (Auto) Eos # (Auto) Baso # (Auto) Total Counted Seg Neutrophils % Lymphocytes % (Manual) Monocytes % (Manual) Eosinophils % (Manual) Neutrophils # (Manual) RBC Morphology Poikilocytosis Anisocytosis Tear Drop Cells ABG pH ABG pCO2 ABG pO2 ABG HCO3 ABG Total CO2 ABG O2 Saturation ABG Base Excess FiO2 Sodium 140 Potassium 4.2 Chloride 104 Carbon Dioxide 25 BUN 21 H Creatinine 0.90 Estimated GFR > 60.0 BUN/Creatinine Ratio 23.3 H Glucose 235 H Lactate 3.0 H Calcium 8.0 L Magnesium Total Creatine Kinase 469 H CK-MB (CK-2) 6.70 H CK-MB (CK-2) Rel Index 1.4 L Troponin I < 0.012 C-Reactive Protein Procalcitonin < 0.05 Urine Color Urine Appearance Urine pH Ur Specific [place] Urine Protein Urine Glucose (UA) Urine Ketones Urine Occult Blood Urine Nitrate Urine Bilirubin Urine Urobilinogen Ur Leukocyte Esterase Urine RBC Urine WBC Urine Bacteria Ur Culture Indicated? Nasal Screen MRSA (PCR) Chlamy pneumoniae PCR Adenovirus (PCR) B.parapertussis DNA PCR Coronavirus OC43 (PCR) Coronavirus HKU1 (PCR) Coronavirus 229E (PCR) Coronavirus NL63 (PCR) Human Metapneumovir PCR Influenza Type A (PCR) Influenza Type B (PCR) M. pneumoniae (PCR) Parainfluenza 1 (PCR) Parainfluenza 2 (PCR) Parainfluenza 3 (PCR) Parainfluenza 4 (PCR) RSV (PCR) Entero/Rhino (PCR) 04/10/19 04/10/19 04/10/19 19:10 19:10 20:17 WBC RBC Hgb Hct MCV MCH MCHC RDW Plt Count Neut % (Auto) Lymph % (Auto) [place] % (Auto) Eos % (Auto) Baso % (Auto) Neut # (Auto) Lymph # (Auto) [place] # (Auto) Eos # (Auto) Baso # (Auto) Total Counted Seg Neutrophils % Lymphocytes % (Manual) Monocytes % (Manual) Eosinophils % (Manual) Neutrophils # (Manual) RBC Morphology Poikilocytosis Anisocytosis Tear Drop Cells ABG pH 7.44 ABG pCO2 27.7 L ABG pO2 62 L ABG HCO3 19 L ABG Total CO2 20 L ABG O2 Saturation 93 L ABG Base Excess -5.0 L FiO2 21 Sodium Potassium Chloride Carbon Dioxide BUN Creatinine Estimated GFR BUN/Creatinine Ratio Glucose Lactate Calcium Magnesium 1.9 Total Creatine Kinase CK-MB (CK-2) CK-MB (CK-2) Rel Index Troponin I C-Reactive Protein 0.7 Procalcitonin Urine Color Urine Appearance Urine pH Ur Specific [place] Urine Protein Urine Glucose (UA) Urine Ketones Urine Occult Blood Urine Nitrate Urine Bilirubin Urine Urobilinogen Ur Leukocyte Esterase Urine RBC Urine WBC Urine Bacteria Ur Culture Indicated? Nasal Screen MRSA (PCR) Chlamy pneumoniae PCR Adenovirus (PCR) B.parapertussis DNA PCR Coronavirus OC43 (PCR) Coronavirus HKU1 (PCR) Coronavirus 229E (PCR) Coronavirus NL63 (PCR) Human Metapneumovir PCR Influenza Type A (PCR) Influenza Type B (PCR) M. pneumoniae (PCR) Parainfluenza 1 (PCR) Parainfluenza 2 (PCR) Parainfluenza 3 (PCR) Parainfluenza 4 (PCR) RSV (PCR) Entero/Rhino (PCR) 04/10/19 04/10/19 04/10/19 21:20 21:20 21:20 WBC RBC Hgb Hct MCV MCH MCHC RDW Plt Count Neut % (Auto) Lymph % (Auto) [place] % (Auto) Eos % (Auto) Baso % (Auto) Neut # (Auto) Lymph # (Auto) [place] # (Auto) Eos # (Auto) Baso # (Auto) Total Counted Seg Neutrophils % Lymphocytes % (Manual) Monocytes % (Manual) Eosinophils % (Manual) Neutrophils # (Manual) RBC Morphology Poikilocytosis Anisocytosis Tear Drop Cells ABG pH ABG pCO2 ABG pO2 ABG HCO3 ABG Total CO2 ABG O2 Saturation ABG Base Excess FiO2 Sodium Potassium Chloride Carbon Dioxide BUN Creatinine Estimated GFR BUN/Creatinine Ratio Glucose Lactate 4.0 H Calcium Magnesium Total Creatine Kinase CK-MB (CK-2) CK-MB (CK-2) Rel Index Troponin I C-Reactive Protein Procalcitonin Urine Color Straw Urine Appearance Clear Urine pH 5.5 Ur Specific [place] 1.010 Urine Protein Negative Urine Glucose (UA) Trace H Urine Ketones Negative Urine Occult Blood 3+ H Urine Nitrate Negative Urine Bilirubin Negative Urine Urobilinogen 0.2 Ur Leukocyte Esterase Negative Urine RBC 0-1/hpf Urine WBC 30-100/hpf H Urine Bacteria None seen Ur Culture Indicated? Cult not indicated Nasal Screen MRSA (PCR) Chlamy pneumoniae PCR Not detected Adenovirus (PCR) Not detected B.parapertussis DNA PCR Not detected Coronavirus OC43 (PCR) Not detected Coronavirus HKU1 (PCR) Not detected Coronavirus 229E (PCR) Not detected Coronavirus NL63 (PCR) Not detected Human Metapneumovir PCR Not detected Influenza Type A (PCR) Not detected Influenza Type B (PCR) Not detected M. pneumoniae (PCR) Not detected Parainfluenza 1 (PCR) Not detected Parainfluenza 2 (PCR) Not detected Parainfluenza 3 (PCR) Not detected Parainfluenza 4 (PCR) Not detected RSV (PCR) Not detected Entero/Rhino (PCR) Detected H 1104/11/19 04/11/19 23:30 01:45 04:40 WBC 16.4 H RBC 4.30 Hgb 12.1 Hct 36.5 MCV 84.9 MCH 28.1 MCHC 33.1 RDW 12.3 Plt Count 247 Neut % (Auto) 84.2 H Lymph % (Auto) 8.9 L [place] % (Auto) 6.9 Eos % (Auto) 0.0 L Baso % (Auto) 0.0 Neut # (Auto) 30922 H Lymph # (Auto) 1500 [place] # (Auto) 1100 H Eos # (Auto) 0 Baso # (Auto) 0 Total Counted Seg Neutrophils % Lymphocytes % (Manual) Monocytes % (Manual) Eosinophils % (Manual) Neutrophils # (Manual) RBC Morphology Poikilocytosis Anisocytosis Tear Drop Cells ABG pH ABG pCO2 ABG pO2 ABG HCO3 ABG Total CO2 ABG O2 Saturation ABG Base Excess FiO2 Sodium Potassium Chloride Carbon Dioxide BUN Creatinine Estimated GFR BUN/Creatinine Ratio Glucose Lactate 3.0 H 1.7 Calcium Magnesium Total Creatine Kinase CK-MB (CK-2) CK-MB (CK-2) Rel Index Troponin I C-Reactive Protein Procalcitonin Urine Color Urine Appearance Urine pH Ur Specific [place] Urine Protein Urine Glucose (UA) Urine Ketones Urine Occult Blood Urine Nitrate Urine Bilirubin Urine Urobilinogen Ur Leukocyte Esterase Urine RBC Urine WBC Urine Bacteria Ur Culture Indicated? Nasal Screen MRSA (PCR) Chlamy pneumoniae PCR Adenovirus (PCR) B.parapertussis DNA PCR Coronavirus OC43 (PCR) Coronavirus HKU1 (PCR) Coronavirus 229E (PCR) Coronavirus NL63 (PCR) Human Metapneumovir PCR Influenza Type A (PCR) Influenza Type B (PCR) M. pneumoniae (PCR) Parainfluenza 1 (PCR) Parainfluenza 2 (PCR) Parainfluenza 3 (PCR) Parainfluenza 4 (PCR) RSV (PCR) Entero/Rhino (PCR) 04/11/19 04/11/19 04/11/19 04:40 04:40 04:40 WBC RBC Hgb Hct MCV MCH MCHC RDW Plt Count Neut % (Auto) Lymph % (Auto) [place] % (Auto) Eos % (Auto) Baso % (Auto) Neut # (Auto) Lymph # (Auto) [place] # (Auto) Eos # (Auto) Baso # (Auto) Total Counted Seg Neutrophils % Lymphocytes % (Manual) Monocytes % (Manual) Eosinophils % (Manual) Neutrophils # (Manual) RBC Morphology Poikilocytosis Anisocytosis Tear Drop Cells ABG pH ABG pCO2 ABG pO2 ABG HCO3 ABG Total CO2 ABG O2 Saturation ABG Base Excess FiO2 Sodium 142 Potassium 4.3 Chloride 108 H Carbon Dioxide 28 BUN 15 Creatinine 0.80 Estimated GFR > 60.0 BUN/Creatinine Ratio 18.8 Glucose 118 H D Lactate 1.2 Calcium 7.4 L Magnesium Total Creatine Kinase CK-MB (CK-2) CK-MB (CK-2) Rel Index Troponin I C-Reactive Protein Procalcitonin 0.25 Urine Color Urine Appearance Urine pH Ur Specific [place] Urine Protein Urine Glucose (UA) Urine Ketones Urine Occult Blood Urine Nitrate Urine Bilirubin Urine Urobilinogen Ur Leukocyte Esterase Urine RBC Urine WBC Urine Bacteria Ur Culture Indicated? Nasal Screen MRSA (PCR) Chlamy pneumoniae PCR Adenovirus (PCR) B.parapertussis DNA PCR Coronavirus OC43 (PCR) Coronavirus HKU1 (PCR) Coronavirus 229E (PCR) Coronavirus NL63 (PCR) Human Metapneumovir PCR Influenza Type A (PCR) Influenza Type B (PCR) M. pneumoniae (PCR) Parainfluenza 1 (PCR) Parainfluenza 2 (PCR) Parainfluenza 3 (PCR) Parainfluenza 4 (PCR) RSV (PCR) Entero/Rhino (PCR) 04/11/19 04/11/19 04:40 11:25 WBC RBC Hgb Hct MCV MCH MCHC RDW Plt Count Neut % (Auto) Lymph % (Auto) [place] % (Auto) Eos % (Auto) Baso % (Auto) Neut # (Auto) Lymph # (Auto) [place] # (Auto) Eos # (Auto) Baso # (Auto) Total Counted Seg Neutrophils % Lymphocytes % (Manual) Monocytes % (Manual) Eosinophils % (Manual) Neutrophils # (Manual) RBC Morphology Poikilocytosis Anisocytosis Tear Drop Cells ABG pH ABG pCO2 ABG pO2 ABG HCO3 ABG Total CO2 ABG O2 Saturation ABG Base Excess FiO2 Sodium Potassium Chloride Carbon Dioxide BUN Creatinine Estimated GFR BUN/Creatinine Ratio Glucose Lactate Calcium Magnesium Total Creatine Kinase CK-MB (CK-2) CK-MB (CK-2) Rel Index Troponin I 0.048 H 0.038 H C-Reactive Protein Procalcitonin Urine Color Urine Appearance Urine pH Ur Specific [place] Urine Protein Urine Glucose (UA) Urine Ketones Urine Occult Blood Urine Nitrate Urine Bilirubin Urine Urobilinogen Ur Leukocyte Esterase Urine RBC Urine WBC Urine Bacteria Ur Culture Indicated? Nasal Screen MRSA (PCR) Chlamy pneumoniae PCR Adenovirus (PCR) B.parapertussis DNA PCR Coronavirus OC43 (PCR) Coronavirus HKU1 (PCR) Coronavirus 229E (PCR) Coronavirus NL63 (PCR) Human Metapneumovir PCR Influenza Type A (PCR) Influenza Type B (PCR) M. pneumoniae (PCR) Parainfluenza 1 (PCR) Parainfluenza 2 (PCR) Parainfluenza 3 (PCR) Parainfluenza 4 (PCR) RSV (PCR) Entero/Rhino (PCR) Assessment & Plan Assessment & Plan narrative: acute hypercarbic respiratory failure -the patient's acute respiratory failure has resolved following treatment with not know locks own. She is now off oxygen. Patient will be treated with oral narcotic and IV narcotics will be held. Her respiratory panel reveals that the patient has rhino virus. No further therapy needed. Will continue with respiratory therapy as needed. - 2. s/p lumbar spinal surgery - prn oxycodone for pain - would hold benzodiazepines Would discontinue Dilaudid at this time and continue oral medications. 3. Leukocytosis, acute - likely reactive secondary to respiratory failure. No evidence of PNA on CXR. - continue to follow CBC - will add procalcitonin to labs 4. - repeat EKG to see if resolution of ST depression. - repeat troponin to ensure no demand ischemia / type II DC despite initial troponin as this will take a few hours to peak after the event. - consider outpatient stress testing given tachycardia induced ST depressions and no peaked troponins. - continue IV fluids overnight after initial bolus given. Medicine service will continue to follow. Quality VTE Deep Vein Thrombosis/Pulmonary Embolism Present on Admission: No
--- NOTE | 2019-04-11 14:51 | OT.IP.EVAL ---
Current Diagnoses Spondylolisthesis, lumbosacral region (04/10/19) Spinal stenosis, lumbar region without neurogenic claudication (04/10/19) Surgery Performed Operation Date: 04/10/19 10:45 Actual Procedures p L4-5,L5-S1 TLIF w/ posterior instrumentatoion - Vance Whiting MD Past Medical History (Last Updated 03/31/19 @ 14:19 by Deedee Perez, RN) Arthritis (Acute) Back pain (Acute) Depression (Acute) Foot fracture, right (Acute ~2008) GERD (gastroesophageal reflux disease) (Acute) HLD (hyperlipidemia) (Acute) Hypothyroid (Acute) Influenza (Acute ~2018) RBBB (right bundle branch block) (Acute) Sciatica (Acute) Surgical History (Last Updated 03/31/19 @ 14:19 by Deedee Perez RN) History of photorefractive keratectomy (PRK) (Acute) Occupational Therapy Inpatient Evaluation/Re-Eval M2 OT-IP Current Condition Start: 04/11/19 16:07 Freq: Status: Active Protocol: Document 04/11/19 14:51 [facility] (Rec: 04/11/19 16:30 [facility] [place] [facility] [id number]) Occupational Therapy Current Condition Current Condition Evaluation Date 04/11/19 Treatment Diagnosis S/p L4-5, L5-S1 TLIF with posterior instru. Diagnosis Onset Date 04/10/19 Post Operative Precautions Abdominal Surgery Precautions Log Roll,Lifting Restrictions, Gait Belt above Incisional Area Weight Bearing Status Weight Bearing Status Weight Bear as Tolerated M3 OT- IP Subjective and Pain Start: 04/11/19 16:07 Freq: Status: Active Protocol: Document 04/11/19 14:51 [facility] [place] (Rec: 04/11/19 16:30 [facility] [place] [id number]) OT- Subjective Occupational Therapy Visit Type Type Initial Evaluation Visit Start Time 14:51 Visit Stop Time 15:24 Total Visit Minutes 33 Occupational Therapy Visit Comments Patient Comments Pt willng to get up for OT eval, nursing just took out the catheter. Patient/Caregiver Goals To go home. OT Pain Assessment Pain When Pain Assessed At Rest Pain Present Pain Present Denied Pain M4 OT- IP ADL's Start: 04/11/19 16:07 Freq: Status: Active Protocol: Document 04/11/19 14:51 [facility] [place] (Rec: 04/11/19 16:30 [facility] [place] [id number]) OT ADL-Grooming General Evaluation Grooming Ability Standby Assistance Areas Needing Assistance Retrieving/Set-up of Grooming Items Comments OT Grooming Comments Pt able to stand at sink with SBA with FWW for grooming needs after set-up. OT ADL-Oral Care General Eval Oral Care Ability Independent OT ADL-Dressing General Eval Lower Body Dressing Ability Maximum Assistance Comments OT Dressing Comments MAX A for socks, able to educate pt for use of billboard installer and sock aid and able to show good understanding and demonstration. Pt states will just have assist for socks/shoes. Pt already has a billboard installer to use at home. OT ADL-Toileting Comments OT Toileting Comments Ca just taken out by nursing. Stimulated wiping while sitting in recliner. Pt able to reach back to wipe , but suggested may be easier to wipe while standing. OT ADL-Bathing Comments OT Bathing Comments Not at this time, to try tomorrow if appropriate. M5 OT- IP IADL's Start: 04/11/19 16:07 Freq: Status: Active Protocol: Document 04/11/19 14:51 [facility] [place] (Rec: 04/11/19 16:30 [facility] [place] [id number]) OT-Instrumental Activities of Daily Living Home Safety Awareness Awareness of Need for Assistance at Home Good Awareness Ability to Problem Solve Emergency Able to Problem Solve Situations Redeye Gunner Redeye Gunner Comments Pt's able to assist for IADL needs. M6 OT- IP Functional Cognition Start: 04/11/19 16:07 Freq: Status: Active Protocol: Document 04/11/19 14:51 [facility] [place] (Rec: 04/11/19 16:30 [facility] [place] [id number]) Cognitive Factors Limiting Selfcare Function Cognitive Ability Level of Alertness Alert Patient Orientation Name,Age,Birthday,Month,Date, Year,Day of Week,Place, Situation Attention Span Ability Capable of Focused Attention, Capable of Sustained Attention Ability to Follow Commands Able to Follow One Step Commands Safety Awareness Underestimates Need for Assistance Cognitive Comments Cognitive Assessment Comments Pt just needing reminders to keep the FWW in front of her at all times. Pt able to states all back precautions and follow for mobility needs. OT- Vision and Hearing OT- Hearing Assessment OT- Hearing Assessment WFL OT- Vision Assessment Visual Acuity Glasses For Reading M7 OT- IP Mobility and Balance Start: 04/11/19 16:07 Freq: Status: Active Protocol: Document 04/11/19 14:51 [facility] [place] (Rec: 04/11/19 16:30 [facility] [place] [id number]) OT- Bed Mobility Assessment Rolling Type of Rolling Roll to Right Level of Assistance Standby Assistance,Bedrails Supine to Sit Supine to Sit Assist Standby Assistance Sit to Supine Sit to Supine Assist Standby Assistance Scooting Scooting to Edge of Bed Standby Assistance Scooting Up and Down in Bed Standby Assistance OT-Transfer Assessment Sit to and From Stand Sit to and from Stand Standby Assistance,Contact Guard Assistance Transfers Transfer Ability Contact Guard Assistance Technique Transfer Destination Bed,Chair Transfer Technique Stand Step Pivot Devices Transfer Assistive Devices Gait Belt,Front Wheeled Walker Comments Mobility Comments SBA for log rolling with bed rail, educated able to hold FWW next to the bed or just get bed rail. CGA to stand and also needing assist to help manage all tubing for pt. Pt's O2 on 1L from 88% to 95%. Pt complaining of cramp in right calf after initially getting up and then after treatment session states no longer has pain, nursing notified of right lower calf cramp. OT- Balance Assessment Sitting Balance and Reactions Static Sitting Balance Ability Normal Dynamic Sitting Balance Ability Good Standing Balance and Reactions Static Standing Balance Ability Good M8 OT- IP Objective Assessments Start: 04/11/19 16:07 Freq: Status: Active Protocol: Document 04/11/19 14:51 [facility] [place] (Rec: 04/11/19 16:30 [facility] [place] [id number]) OT Gross Range of Motion Upper Extremity Range of Motion Assessment Within Functional Limits ROM Impairments WFL for needs however at times decreased at end ranges when having brusitis of her shoulders R > L. OT Strength Upper Extremity Strength Assessment Within Functional Limits OT-Muscle Tone Assessment Muscle Tone WNL Yes M9 OT- IP Assessment and Plan Start: 04/11/19 16:07 Freq: Status: Active Protocol: Document 04/11/19 14:51 [facility] [place] (Rec: 04/11/19 16:30 [facility] [place] [id number]) OT Summary Assessment and Plan Potential Rehabilitation Potential Good Analytic Complexity at Evaluation Low Summary OT Impairments Pain,Balance,Functional Mobility,Dressing,Toileting, Bathing,Toilet Transfers, Shower Transfers Progress Towards Goals Progressing Toward Goals Assessment Summary Pt low complexity and doing well and looking to go home when medically stable. Pt still on 1L O2 and will benefit from caregiver training with pt's prior to going home. At this time pt is CGA for all mobility needs with FWW and able to do ADL's with use of adaptive equipment needs. Goals Grooming Goal Independent Dressing Goal Standby Assistance Toileting Goal Standby Assistance Bathing Goal Contact Guard Assistance Toilet Transfer Goal Standby Assistance Shower Transfer Goal Contact Guard Assistance Patient/Caregiver Education Goal Demonstrate Post-Op Precautions,Caregiver Independent Assisting Patient Days to Meet Goals 5 Frequency of Treatment Frequency Of Treatment Once a Day Treatment Plan OT Treatment Plan ADL Training,Functional Mobility,Patient/Family Education,Discharge Planning Other Treatment Recommendations and Next shower Treatment Focus Discharge Recommendations OT Discharge Recommendations Home with Assistance Home Equipment Needs bed rail
--- NOTE | 2019-04-11 15:06 | PC.NURSE ---
Am shift Pt is A/o x4, making needs known, able to wean from O2 while awake. Ca patent. limiting use of narcotics to maintain resp status. oxycodone 10mg x2 this shift. Vistaril x1, effective. Up with Pt, ambulating around unit. Denies pain, SR/ST, VSS. Dressing to back CDI. Mild numbness to BLE, present and unchanged from preop. Assist to position for comfort. Pt noted with sensitivity from adhesive on lab draws, dressing to back CDI, no openareas, or irritation noted. Attempt sparing use of adhesive. 1450-Ca removed, Pt education provided for assist to void. OT seeing Pt.
--- NOTE | 2019-04-11 16:22 | PT.IPTN ---
This is to certify that I have reviewed this documentation and is involved with this pt's care. Current Diagnoses Spondylolisthesis, lumbosacral region (04/10/19) Spinal stenosis, lumbar region without neurogenic claudication (04/10/19) Surgery Performed Operation Date: 04/10/19 10:45 Actual Procedures p L4-5,L5-S1 TLIF w/ posterior instrumentatoion - Vance Whiting MD Physical Therapy Treatment Note M2 PT-IP Current Condition Start: 04/11/19 10:36 Freq: NEEDED Status: Active Protocol: Document 04/11/19 09:40 HH (Rec: 04/11/19 11:05 [id number]) Physical Therapy Current Condition Current Condition Evaluation Date 04/11/19 Treatment Diagnosis L4-S1 TLIF, acute hypercarbic resp failure, decreased activity tolerance Onset Date 04/10/19 Precautions Lumbar Precautions Log Roll,No Twisting,Limit Bending,Lifting Restriction of 10 lbs,Gait Belt above Incisional Area Other Precautions Droplet precaution Weight Bearing Status Weight Bearing Status Full Weight Bearing M3 PT-IP Subjective Start: 04/11/19 10:36 Freq: NEEDED Status: Active Protocol: Document 04/11/19 16:22 JG (Rec: 04/11/19 17:54 JG [id number]) Subjective Physical Therapy Visit Type Type Treatment Note Visit Start Time 16:22 Visit Stop Time 16:53 Total Visit Minutes 31 Notes Tx led by GONZALEZ Flores, supervised by PT Vika Number of CABLE MECHANIC Visits 0 Physical Therapy Visit Comments Patient Comments Pt had just woken up but was agreeable to participate in therapy. Patient Goals Return home M4 PT-IP Mobility and Gait Start: 04/11/19 10:36 Freq: NEEDED Status: Active Protocol: Document 04/11/19 16:22 JG (Rec: 04/11/19 17:54 JG [id number]) PT-Bed Mobility Assessment Rolling Type of Rolling Log Rolling,Roll to Right Level of Assist Contact Guard Assistance Supine to Sit Supine to Sit Minimal Assistance,Bedrails Scooting Scooting to Edge of Bed Contact Guard Assistance PT-Transfer Assessment Sit to and From Stand Sit to and from Stand Minimal Assistance,Use of Upper Extremities Equipment Transfer Assistive Device Gait Belt,Front Wheeled Walker Orthotic/Prosthetic Devices or Brace: No Transfers Transfer Destination Chair,Toilet Transfer Technique ambulate with FWW Transfer Ability Level of Assist Minimal Assistance,Use of Upper Extremities Comments Mobility Comments Pt in bed at start of treatment. Resting vitals 97% O2 on 3L O2, BP 135/72. Pt appeared slightly confused and groggy at start of session. Pt able to articulate precautions of log rolling and limiting bending and twisting , however she required cuing to remember lifting. Pt able to log roll CGA but required min A and use of bed rail and mod cuing to sit up. Assessed O2 saturation without 1 L O2 and pt began to desat to 90% in sitting, so O2 was kept on for remainder of mobility. Pt initially min A for sit to/ from stand for stability as pt tried to use walker to pull herself up. Pt ambulated to bathroom to void then ambulated back to chair. Educated pt on sit to stand using B UE pushoff to improve stability. Pt demonstrated improved stability after 4 repetitions with SBA. Pt cont to demonstrated confusion and difficulty following directions throughout session. Required mod to max cuing to follow directions. Pt left in chair with call light and needs within reach. Gait Assessment Gait Gait Assistance Required: Contact Guard Assist Distance (Feet) 20 Able to Maintain Weight Bearing Status Yes During Gait Assistive Devices Assistive Device Gait Belt,Front Wheeled Walker Orthotic/Prosthetic Devices or Brace: No Gait Deviations General Gait Pattern Antalgic,Decreased Stride Length,Decreased Feet Clearance,Flexed Trunk Factors Limiting Gait Function Factors Limiting Gait Function Decreased Activity Tolerance, Decreased Strength,Difficulty Following Directions,Limited Range of Motion,Pain,Poor Safety Awareness,Respiratory Distress Comments Gait Comments Pt ambulated to bathroom and back to chair with FWW and CGA for stability. Pt demonstrated short, shuffling steps and was very unsteady with gait. No LOB but decreased stability when turning. Cont to require cuing for safety. Stair Climbing Assessment Comments Stair Climbing Comments not assessed PT-Balance Assessment Sitting Balance and Reactions Static Sitting Balance Ability Normal Dynamic Sitting Balance Ability Good Standing Balance and Reactions Static Standing Balance Ability Good Dynamic Standing Balance Ability Fair Device Used FWW M5 PT-IP Objective Assessments Start: 04/11/19 10:36 Freq: NEEDED Status: Active Protocol: Document 04/11/19 09:40 (Rec: 04/11/19 11:05 [email or web address]) Orientation Orientation/Cognition Level of Alertness Alert Orientation Name,Age,Birthday,Month,Date, Year,Day of Week,Place, Situation Language Function Ability No Deficits Noted Safety Awareness Understands Safety Issues Memory Description Short Term Impaired Comments Pt needed multiple reminders of post op precautions (BLT) , but she was able to state I have to stay up straight Gross Range of Motion Upper Extremity ROM Assessment Within Functional Limits Lower Extremity ROM Assessment Within Functional Limits Strength Upper Extremity Strength Assessment Within Functional Limits Lower Extremity Strength Assessment Bilaterally Impaired Hip 4/5 Knee 4/5 Coordination Assessment Gross Coordination Gross Coordination WNL Sensation Assessment Sensation Gross Sensation WNL Muscle Tone Muscle Tone WNL Yes M6 PT-IP Treatment Start: 04/11/19 10:36 Freq: NEEDED Status: Active Protocol: Document 04/11/19 16:22 JG (Rec: 04/11/19 17:54 [id number]) Physical Therapy Treatment Education Education Provided Precautions,Safety Other Treatments Other Treatment Performed Reviewed precautions. Educated pt on sit to stand using B UE pushoff from chair armrests for improved stability. Pt improved after several repetitions. Disc replacing caps on back legs of FWW with tennis balls or sliding caps so that walker does not get stuck as pt is moving. M7 PT-IP Assessment and Plan Start: 04/11/19 10:36 Freq: NEEDED Status: Active Protocol: Document 04/11/19 16:22 JG (Rec: 04/11/19 17:54 [id number]) PT Summary Assessment and Plan Potential Rehabilitation Potential Good Status of Condition at Evaluation Evolving Summary Impairments Pain,ROM,Strength,Balance, Cognition,Bed Mobility, Transfers,Gait,Activity Tolerance Progress Towards Goals Slow Progress due to Medical Issues Assessment Summary Pt demonstrated increased impulsivity throughout session and had difficulty following directions. Cont to require cuing for precautions. Pt cont to require min A for bed mobility and transfers with mod cuing for use of UE to assist. Improved independence and stability with sit to stand after education to use B UE pushoff and stand up straight before grabbing walker. Will cont to reassess pt's ability to return home with assist after CG training complete and pt becomes more medically stable. Goals Bed Mobility Goal Standby Assistance Transfer Goal Standby Assistance,Front Wheeled Walker Gait Goal Standby Assistance,Front Wheel Walker Gait Distance 200 Days to Meet Goals 5 Frequency of Treatment Frequency Of Treatment Twice a Day Treatment Plan Physical Therapy Treatment Plan Bed Mobility Training,Transfer Training,Gait Training, Therapeutic Exercise,Balance Retraining,Post Op Education, Discharge Planning,Hot or Cold Pack,Neuromuscular Re-ed Other Recommendations and Next Treatment Monitor VSS Focus Review precautions CG training Recommendations To Nursing Amount of Assist Needed 1 Person Assist Discharge Recommendations PT Discharge Recommendations Home with Assistance,Home with 24/7 Assist,Home Health Other Discharge Recommendations Possibly home health depending on progress
[2019-04-11] MEDS: ATORVASTATIN 10 MG TABLET PO (20:36)
[2019-04-11] MEDS: VENLAFAXINE 37.5 MG TABLET PO (20:36)
[2019-04-11] MEDS: ACETAMINOPHEN 325 MG TABLET 650 MG PO (20:36)
[2019-04-11] MEDS: LEVOTHYROXINE 75 MCG TABLET PO (20:37)
[2019-04-12] VITALS (15 sets, daily range): BP systolic 123–134; BP diastolic 58–70; PULSE 68–99; RESP 16–21; TEMP 37.2–38.5; O2SAT 86–96
[2019-04-12] MEDS: OXYCODONE IR 5 MG TABLET 10 MG PO ×4 (03:01→19:58)
[2019-04-12 05:06] LABS: Add Manual Diff / Slide Review NO; Basophils Absolute Auto 0 /uL (0-100); Basophils Percent Auto 0.1 % (0-2); Eosinophils Absolute Auto 0 /uL (0-450); Hematocrit 32.4 % (36-46); Hemoglobin 10.9 g/dL (12.0-16.0); Lymphocytes Absolute Auto 1700 /uL (1100-4500); Lymphocytes Percent Auto 13.1 % (25-40); Mean Corpuscular HGB Conc 33.7 % (30-36); Mean Corpuscular Hemoglobin 28.6 PG (26-34); Mean Corpuscular Volume 84.9 fL (80-100); Monocytes Absolute Auto 1100 /uL (0-900); Monocytes Percent Auto 8.1 % (3-14); Neutrophils Absolute Auto 10200 /uL (1500-7000); Neutrophils Percent Auto 78.7 % (50-75); Platelet Count 174 X10^3/uL (150-400); Red Blood Cell Count 3.82 X10^6/uL (4.0-5.2); Red Cell Distribution Width 12.4 % (11.6-14.8); White Blood Cell Count 12.9 X10^3/uL (4.5-11.0)
[2019-04-12 05:19] LABS: BUN Creatinine Ratio 17.1 (6-22); Blood Urea Nitrogen 12 mg/dL (7-17); Calcium 7.9 mg/dL (8.4-10.2); Carbon Dioxide 31 mmol/L (22-32); Chloride 105 mmol/L (98-107); Estimated Glomerular Filt Rate > 60.0 mL/min (>60); Glucose 125 mg/dL (80-110); HEMOLYSIS < 15 (0-50); Potassium 3.8 mmol/L (3.4-5.1); Sodium 140 mmol/L (137-145)
[2019-04-12 05:36] LABS: Procalcitonin 0.24 ng/mL (<0.5)
[2019-04-12] MEDS: ACETAMINOPHEN 325 MG TABLET 650 MG PO ×2 (08:57→19:58)
--- NOTE | 2019-04-12 10:38 | CM.DANOTE ---
DCP Assessment: EMR Reviewed: patient is a 73 yr old female who was admitted to for fusion surgery preformed by Dr. Whiting. PCP is dr Martin. CM/RN met with patient at the bedside and explained CM/RN role. Patient was alert and orientedx3 at the time of CM meeting. Patient currently lives with her in a two story home but has no need to go down stairs into the daylight basement. DME: patient has elevated toilet seat, FWW, Cane and bath bench at home. PT evaluation done with the recommendation for home with assistance. Patient asked CM about HH as possibility if PT and MD recommend it for recovery. Patient stated she isn't sure she will need it but was wondering the process if it was determined she needed HH. CM explained that CM department could assist with that if she would like to choose a HH option. Patient stated she doesn't think she will need it and doesn't want to choose a HH provider. She was just asking for a worst case scenario. Insurance: 1st: [employer] 2nd: self pay Plan: D/C home with when medically stable. CM department will follow closely until d/c to determine if any D/C planning needs arise. Bettye Dorantes RN. Discharge Planning/Care Management CM Discharge Assessment Start: 04/12/19 10:36 Freq: Status: Active Protocol: Document 04/12/19 10:37 HS (Rec: 04/12/19 10:38 [id number]) Discharge Planning Assessment Assigned Tribunal Member Bettye Dorantes RN DPOA/Assigned Designee Name Calixto Scales () Contact Information [phone] Advance Directives? No History Provided By Patient Has Patient been admitted in last 30 No days? Prior Living Arrangements House Household Members spouse Type of transporation used prior to Drives own vehicle admit Independent with ADL's Yes Is patient alert and oriented? Yes Caregiver for Another No DME Already Rented / Owned Bath Bench,Elevated Toilet Seat,FWW / Walker,Cane Discharge Plan Home Referrals Initiated None needed Whiteboard Updated in Patient Room with Yes name and ext. # of Tribunal Member Review Status In Process Next Review Type Continued Stay Review Pre-Anesthesia Assessment Start: 03/31/19 14:02 Freq: Status: Complete Protocol: Document 03/31/19 14:02 CAB (Rec: 03/31/19 15:02 CAB [id number]) Pre-Anesthesia Assessment Preferred Name Brenda Patient Information Reviewed Via Phone Assessment Assessment Completed With Patient Diagnostic Results BMP/CMP,CBC,EKG Comment Outside lab/EKG scanned to record Primary Care Provider Yemi Martin Seen Specialist in Last 12 Months Yes Specialist Seen Orthopedist Primary Language Bulgarian Machine Fastener Required No Height 157.48 cm Weight 60.328 kg Body Mass Index (BMI) 24.3 Hearing Ability Normal Visual Assist Glasses Dentition Type Teeth, Natural Present Barriers to Learning None Hx Anesthesia Reactions No: No prior surgical history Hx Family Anesthesia Reaction No Hx Malignant Hyperthermia No Hx Blood Transfusions No Anesthesia Review Requested No alcohol intake current alcohol intake frequency a few times a month Smoking Status Former smoker how long ago did patient quit smoking Quit 1982 Substance Use Type does not use Pain Present Pain Reported Musculoskeletal Symptoms Abnormal Gait,Back Pain, Difficulty Walking,Muscle Weakness,Numbness,Radiating Pain into Limb History of Falling (Recent or History of Yes ) Patient is completely paralyzed or No completely immobile Prosthesis or Orthotic Device Front Wheel Walker Mental Status Oriented to own ability Is patient on oxygen? No Does patient have OROZCO/SOB No Hx Sleep Apnea No Currently Taking a Beta Maria Esther No Can You Climb a Flight of Stairs Without Yes SOB Hx Chest Pain No Hx SOB No Hx Syncope or Dizziness No Anti-Coagulant Therapy No Has a Rotary Engine Assembler No Cardiac Testing No Hx Pacemaker/ICD No Pacemaker Rep Required? No Cardiac Clearance Received Not Applicable Diet Type At Home Regular dysphagia Yes: Occasional choking on food, liquid Urinary Catheter Present No Hx Urinary Self Catheterization No Diabetes No Patient No Lactating No Hx Drug Resistant Organism No Presence of External or Internal Medical No Devices Have you traveled outside the [facility] in the last 30 days? Marital Status Lives With spouse Prior Living Arrangements House Number of Floors (Floors) Two Floors Support System Friend(s),Spouse Does the Patient Have Assistance After Yes Surgery Patient Discharge Plan Description Return Home Comment Pt advised 2-3 night length of stay per surgeon Feels Safe in Current Environment Yes Been Physically Hurt or Threatened By a No Person in Current Environment Do you have thoughts of harming yourself None or others? Are you currently considering suicide? No Do you have a plan to hurt yourself or No Plan others? Do You Have Any Spiritual Beliefs That No May Affect Your HC Choices? Do You Have Any Cultural Practices That No May Affect Your HC Choices? Who Can We Speak to About Patient's Care Family, friends Identifying Code for Release of Patient Declines to issue Information Health Care Proxy/Next of Kin Calixto () Health Care Proxy or [phone] Emergency Contact Name Calixto () Emergency Contact or [phone] Advance Directives? No Power of Hand Cooper Helper No PAC Instructions Durable medical equipment, Medications to take/avoid, Nasal antibiotic,No ETOH/ petroleum product on skin DOS, NPO,Post-op transportation,Pre -surgical wash,Sturdy shoes/ comfortable clothes,Do not bring valuables and remove jewelry
--- NOTE | 2019-04-12 12:02 | PT.IPTN ---
Current Diagnoses Spondylolisthesis, lumbosacral region (04/10/19) Spinal stenosis, lumbar region without neurogenic claudication (04/10/19) Surgery Performed Operation Date: 04/10/19 10:45 Actual Procedures p L4-5,L5-S1 TLIF w/ posterior instrumentatoion - Vance Whiting MD Physical Therapy Treatment Note M2 PT-IP Current Condition Start: 04/11/19 10:36 Freq: NEEDED Status: Active Protocol: Document 04/11/19 09:40 (Rec: 04/11/19 11:05 [email or web address]) Physical Therapy Current Condition Current Condition Evaluation Date 04/11/19 Treatment Diagnosis L4-S1 TLIF, acute hypercarbic resp failure, decreased activity tolerance Onset Date 04/10/19 Precautions Lumbar Precautions Log Roll,No Twisting,Limit Bending,Lifting Restriction of 10 lbs,Gait Belt above Incisional Area Other Precautions Droplet precaution Weight Bearing Status Weight Bearing Status Full Weight Bearing M3 PT-IP Subjective Start: 04/11/19 10:36 Freq: NEEDED Status: Active Protocol: Document 04/12/19 11:32 DCW (Rec: 04/12/19 12:24 DCW [id number]) Subjective Physical Therapy Visit Type Type Treatment Note Visit Start Time 11:32 Visit Stop Time 12:02 Total Visit Minutes 30 Number of LEATHER TOGGLER Visits 0 Physical Therapy Visit Comments Patient Comments I wasn't feeling well about an hour ago, but whatever they gave me is great, I feel really good right now. Patient Goals Return home Therapy Pain Assessment Pain Present Pain Present Pain Reported M4 PT-IP Mobility and Gait Start: 04/11/19 10:36 Freq: NEEDED Status: Active Protocol: Document 04/12/19 11:32 DCW (Rec: 04/12/19 12:24 DCW [id number]) PT-Bed Mobility Assessment Rolling Type of Rolling Log Rolling,Roll to Right Level of Assist Standby Assistance Supine to Sit Supine to Sit Standby Assistance,Bedrails Scooting Scooting to Edge of Bed Standby Assistance PT-Transfer Assessment Sit to and From Stand Sit to and from Stand Standby Assistance Equipment Transfer Assistive Device None,Gait Belt,Front Wheeled Walker Comments Mobility Comments Pt in bed asleep at start of therapy, O2 sat 94% on 1L supplemental O2. Pt able yo perform bed mobility and transfers using bed rails and FWW with SBA, able to recite her spinal precautions. Gait Assessment Gait Gait Assistance Required: Standby Assistance Distance (Feet) 400 Able to Maintain Weight Bearing Status Yes During Gait Assistive Devices Assistive Device None,Gait Belt,Front Wheeled Walker Comments Gait Comments Pt ambulated 10 laps in her room SBA using her FWW, and then another 10 laps SBA with no assistive device. PT was then able to go into her bathroom with no AD. Stair Climbing Assessment Comments Stair Climbing Comments not assessed M5 PT-IP Objective Assessments Start: 04/11/19 10:36 Freq: NEEDED Status: Active Protocol: Document 04/11/19 09:40 HH (Rec: 04/11/19 11:05 HH [id number]) Orientation Orientation/Cognition Level of Alertness Alert Orientation Name,Age,Birthday,Month,Date, Year,Day of Week,Place, Situation Language Function Ability No Deficits Noted Safety Awareness Understands Safety Issues Memory Description Short Term Impaired Comments Pt needed multiple reminders of post op precautions (BLT) , but she was able to state I have to stay up straight Gross Range of Motion Upper Extremity ROM Assessment Within Functional Limits Lower Extremity ROM Assessment Within Functional Limits Strength Upper Extremity Strength Assessment Within Functional Limits Lower Extremity Strength Assessment Bilaterally Impaired Hip 4/5 Knee 4/5 Coordination Assessment Gross Coordination Gross Coordination WNL Sensation Assessment Sensation Gross Sensation WNL Muscle Tone Muscle Tone WNL Yes M6 PT-IP Treatment Start: 04/11/19 10:36 Freq: NEEDED Status: Active Protocol: Document 04/12/19 11:32 DCW (Rec: 04/12/19 12:24 DCW [id number]) Physical Therapy Treatment Education Education Provided Precautions,Safety Other Treatments Other Treatment Performed LAQ, Marching M7 PT-IP Assessment and Plan Start: 04/11/19 10:36 Freq: NEEDED Status: Active Protocol: Document 04/12/19 11:32 DCW (Rec: 04/12/19 12:24 DCW [id number]) PT Summary Assessment and Plan Summary Impairments Pain,ROM,Strength,Balance, Cognition,Bed Mobility, Transfers,Gait,Activity Tolerance Assessment Summary Pt performed much better today , was feeling minimal pain and felt good enough to get up and walk 10 laps around her room with her walker, and then another 10 laps with no assistive device. Pt showed no signs of the confusion and impulsive behavior she was exhibiting yesterday. Pt may decline slightly when her current medication wears off, but when she gets medically stabilized, she will likely be safe to return home. Goals Bed Mobility Goal Standby Assistance Transfer Goal Standby Assistance,Front Wheeled Walker Gait Goal Standby Assistance,Front Wheel Walker Gait Distance 200 Days to Meet Goals 5 Frequency of Treatment Frequency Of Treatment Twice a Day Treatment Plan Physical Therapy Treatment Plan Bed Mobility Training,Transfer Training,Gait Training, Therapeutic Exercise,Balance Retraining,Post Op Education, Discharge Planning,Hot or Cold Pack,Neuromuscular Re-ed Other Recommendations and Next Treatment Monitor VSS Focus Review precautions CG training Recommendations To Nursing Amount of Assist Needed Standby Assistance,1 Person Assist Discharge Recommendations PT Discharge Recommendations Home with Assistance,Home Health
--- NOTE | 2019-04-12 12:24 | PM.PN.1 ---
Subjective Subjective Date Patient Seen: 04/12/19 Interval history: The patient is a 73-year-old female status post trans lumbar spine fusion. Patient received significant sedation during her operative procedure and developed respiratory failure. She required in a lock stone for respiratory depression. She was hypoxic and required oxygen. She has been tapered off the oxygen with room air saturations of 93-94% during the day. She is noted to be hypoxic when sleeping at night. The patient reports her pain control is well with Tylenol and oxycodone. She has been able to ambulate in her room without difficulty. Exam Vital Signs (past 8 hours): - 04/12/19 08:00 04/12/19 08:30 04/12/19 10:37 Temperature 98.9 F Pulse Rate 98 H Respiratory Rate 18 Blood Pressure 132/67 Pulse Oximetry 93 95 86 L 04/12/19 10:39 04/12/19 12:00 Temperature 99.7 F H Pulse Rate 90 Respiratory Rate 16 Blood Pressure 134/58 L Pulse Oximetry 93 94 Oxygen Delivery Method Nasal Cannula Oxygen Flow Rate 1 Narrative Exam Narrative: Pleasant female sitting in her chair eating lunch in no obvious distress Lungs decreased breath sounds with occasional scattered crackles at the right base Cardiac exam regular rate and rhythm normal S1-S2 Abdomen soft nontender nondistended without hepatosplenomegaly Extremity lower extremities revealed no edema Objective Labs Result Diagrams: 04/12/19 04:48 04/12/19 04:48 Labs: Laboratory Results - last 24 hr 04/11/19 04/12/19 04/12/19 15:20 04:48 04:48 WBC 12.9 H RBC 3.82 L Hgb 10.9 L Hct 32.4 L MCV 84.9 MCH 28.6 MCHC 33.7 RDW 12.4 Plt Count 174 Neut % (Auto) 78.7 H Lymph % (Auto) 13.1 L Payette % (Auto) 8.1 Eos % (Auto) 0.0 L Baso % (Auto) 0.1 Neut # (Auto) 57776 H Lymph # (Auto) 1700 [place]ette # (Auto) 1100 H Eos # (Auto) 0 Baso # (Auto) 0 Sodium 140 Potassium 3.8 Chloride 105 Carbon Dioxide 31 BUN 12 Creatinine 0.70 Estimated GFR > 60.0 BUN/Creatinine Ratio 17.1 Glucose 125 H Calcium 7.9 L Troponin I 0.030 Procalcitonin 04/12/19 04:48 WBC RBC Hgb Hct MCV MCH MCHC RDW Plt Count Neut % (Auto) Lymph % (Auto) Payette % (Auto) Eos % (Auto) Baso % (Auto) Neut # (Auto) Lymph # (Auto) Payette # (Auto) Eos # (Auto) Baso # (Auto) Sodium Potassium Chloride Carbon Dioxide BUN Creatinine Estimated GFR BUN/Creatinine Ratio Glucose Calcium Troponin I Procalcitonin 0.24 Assessment & Plan Assessment & Plan narrative: Impression 1. Opioid induced respiratory failure, resolved with no locks own. The patient no longer requires oxygen during the day. She is noted to be hypoxic at night. Patient's pain is well control with oral narcotics. 2. Probable obstructive sleep apnea, patient has been observed to desaturated night. Would recommend outpatient sleep study for further evaluation to determine wear CPAP therapy is appropriate. 3. Status post T lift, postop day 2 further recommendations per surgery 4. Hyperlipidemia, continue atorvastatin 5. Hypothyroidism, continue levothyroxine 6. Depression, continue Effexor. Patient has improved significantly. Will sign off thank you very much for this consultation Quality VTE Deep Vein Thrombosis/Pulmonary Embolism Present on Admission: No
--- NOTE | 2019-04-12 13:01 | PC.NURSE ---
Addendum entered by Issac Mandujano R.N. 04/12/19 14:10: Back dsg got wet after pt showered with OT. Removed outer dsg and replaced with island border dsg. Incisions are covered with gauze. Left surgical site is mildly pink along lateral border. No drainage. Original Note: Doing well. SBA with ambulation. Using gait belt for safety. Pt is ambulating without AD and demonstrating steady gait. Pain is well managed with oxycodone and tylenol. RA SPO2 91-94%. Pt is noted to be 86% on RA while sleeping, requiring 1L NC to keep SPO2 greater than 90%. Pt denies symptoms. Easily awakens with verbal stimulus. Using call light appropriately and waiting for assistance.
--- NOTE | 2019-04-12 13:02 | OT.IP.TRT ---
Current Diagnoses Spondylolisthesis, lumbosacral region (04/10/19) Spinal stenosis, lumbar region without neurogenic claudication (04/10/19) Surgery Performed Operation Date: 04/10/19 10:45 Actual Procedures p L4-5,L5-S1 TLIF w/ posterior instrumentatoion - Vance Whiting MD Occupational Therapy Treatment Note M2 OT-IP Current Condition Start: 04/11/19 16:07 Freq: Status: Active Protocol: Document 04/11/19 14:51 [facility] (Rec: 04/11/19 16:30 [facility] [id number]) Occupational Therapy Current Condition Current Condition Evaluation Date 04/11/19 Treatment Diagnosis S/p L4-5, L5-S1 TLIF with posterior instru. Diagnosis Onset Date 04/10/19 Post Operative Precautions Abdominal Surgery Precautions Log Roll,Lifting Restrictions, Gait Belt above Incisional Area Weight Bearing Status Weight Bearing Status Weight Bear as Tolerated M3 OT- IP Subjective and Pain Start: 04/11/19 16:07 Freq: Status: Active Protocol: Document 04/12/19 13:46 CGR (Rec: 04/12/19 13:56 CGR [id number]) OT- Subjective Occupational Therapy Visit Type Type Progress Note Visit Start Time 12:29 Visit Stop Time 13:02 Total Visit Minutes 33 Occupational Therapy Visit Comments Patient Comments Pt agreeable to shower. OT Pain Assessment Pain When Pain Assessed During Mobility Pain Present Pain Present Pain Reported Location lower back -bilateral legs Intensity 3 Scale Used Numeric (1 - 10) Management Techniques Distraction,Modification of Treatment,Timing of Activity with Medications M4 OT- IP ADL's Start: 04/11/19 16:07 Freq: Status: Active Protocol: Document 04/12/19 13:46 CGR (Rec: 04/12/19 13:56 CGR [id number]) OT [id number] Comments OT Self-Feeding Comments Not meal time OT ADL-Grooming General Evaluation Grooming Ability Independent Areas Needing Assistance Combing/Brushing Hair,Face Washing Comments OT Grooming Comments seated in chair for brushing hair after shower, washed face seated in shower chair. OT ADL-Oral Care Comments Oral Care Comments Not performed on this date. OT ADL-Dressing General Eval Upper Body Dressing Ability Standby Assistance Lower Body Dressing Ability Standby Assistance Areas Needing Assistance Retrieving/Set-up of Clothing, Socks Comments OT Dressing Comments Pt was able to don socks without AD while maintaining back precautions. OT ADL-Toileting Comments OT Toileting Comments Not performed in this session OT ADL-Bathing Bathing Type Bathing Type Shower General Evaluation Bathing Ability Standby Assistance,Minimal Assistance Areas Needing Assistance Retrieving/Setting Up Items, Wash/Dry Upper Body,Wash/Dry Lower Extremities Devices Bathing Equipment Hand Held Shower Sprayer, Shower Chair without Arms Comments OT Bathing Comments Pt showered seated and washed hair with SBA to min a for LB drying and back. M5 OT- IP IADL's Start: 04/11/19 16:07 Freq: Status: Active Protocol: Document 04/11/19 14:51 [facility] (Rec: 04/11/19 16:30 [facility] [id number]) OT-Instrumental Activities of Daily Living Home Safety Awareness Awareness of Need for Assistance at Home Good Awareness Ability to Problem Solve Emergency Able to Problem Solve Situations Behavioral Geneticist Behavioral Geneticist Comments Pt's able to assist for IADL needs. M6 OT- IP Functional Cognition Start: 04/11/19 16:07 Freq: Status: Active Protocol: Document 04/11/19 14:51 [facility] (Rec: 04/11/19 16:30 [facility] [id number]) Cognitive Factors Limiting Selfcare Function Cognitive Ability Level of Alertness Alert Patient Orientation Name,Age,Birthday,Month,Date, Year,Day of Week,Place, Situation Attention Span Ability Capable of Focused Attention, Capable of Sustained Attention Ability to Follow Commands Able to Follow One Step Commands Safety Awareness Underestimates Need for Assistance Cognitive Comments Cognitive Assessment Comments Pt just needing reminders to keep the FWW in front of her at all times. Pt able to states all back precautions and follow for mobility needs. OT- Vision and Hearing OT- Hearing Assessment OT- Hearing Assessment WFL OT- Vision Assessment Visual Acuity Glasses For Reading M7 OT- IP Mobility and Balance Start: 04/11/19 16:07 Freq: Status: Active Protocol: Document 04/12/19 13:46 CGR (Rec: 04/12/19 13:56 CGR [id number]) OT-Transfer Assessment Sit to and From Stand Sit to and from Stand Contact Guard Assistance Transfers Transfer Ability Contact Guard Assistance Technique Transfer Destination Chair,Shower Stall Transfer Technique Stand Step Pivot Devices Transfer Assistive Devices Gait Belt OT- Gait Assessment Gait Gait Assistance Required: Contact Guard Assist Assistive Devices Assistive Device Gait Belt Comments Gait Ability Comments Mobility to the shower in ICU with CGA using gait belt. OT- Balance Assessment Sitting Balance and Reactions Static Sitting Balance Ability Good Dynamic Sitting Balance Ability Fair M8 OT- IP Objective Assessments Start: 04/11/19 16:07 Freq: Status: Active Protocol: Document 04/11/19 14:51 [facility] (Rec: 04/11/19 16:30 [facility] [email or web address]) OT Gross Range of Motion Upper Extremity Range of Motion Assessment Within Functional Limits ROM Impairments WFL for needs however at times decreased at end ranges when having brusitis of her shoulders R > L. OT Strength Upper Extremity Strength Assessment Within Functional Limits OT-Muscle Tone Assessment Muscle Tone WNL Yes M9 OT- IP Assessment and Plan Start: 04/11/19 16:07 Freq: Status: Active Protocol: Document 04/12/19 13:46 CGR (Rec: 04/12/19 13:56 CGR [id number]) OT Summary Assessment and Plan Potential Rehabilitation Potential Good Analytic Complexity at Evaluation Low Summary OT Impairments Pain,Balance,Functional Mobility,Dressing,Toileting, Bathing,Toilet Transfers, Shower Transfers Progress Towards Goals Progressing Toward Goals Assessment Summary Pt with increasing abilities on this date. Pt needs reminders for deep breathing to keep O2 stats up with all activity. Pt states less pain and increased ease of mobility . Pt will continue to benefit from OT services. Goals Grooming Goal Independent Dressing Goal Standby Assistance Toileting Goal Standby Assistance Bathing Goal Contact Guard Assistance Toilet Transfer Goal Standby Assistance Shower Transfer Goal Contact Guard Assistance Patient/Caregiver Education Goal Demonstrate Post-Op Precautions,Caregiver Independent Assisting Patient Days to Meet Goals 4 Frequency of Treatment Frequency Of Treatment Once a Day Treatment Plan OT Treatment Plan ADL Training,Functional Mobility,Patient/Family Education,Discharge Planning Other Treatment Recommendations and Next ADLs while maintaining back Treatment Focus precautions. Discharge Recommendations OT Discharge Recommendations Home with Assistance Home Equipment Needs Pt states does not need socks aid and to assist, otherwise has all equipment needs.
--- NOTE | 2019-04-12 15:44 | PT.IPTN ---
Current Diagnoses Spondylolisthesis, lumbosacral region (04/10/19) Spinal stenosis, lumbar region without neurogenic claudication (04/10/19) Surgery Performed Operation Date: 04/10/19 10:45 Actual Procedures p L4-5,L5-S1 TLIF w/ posterior instrumentatoion - Vance Whiting MD Physical Therapy Treatment Note M2 PT-IP Current Condition Start: 04/11/19 10:36 Freq: NEEDED Status: Active Protocol: Document 04/11/19 09:40 (Rec: 04/11/19 11:05 [email or web address]) Physical Therapy Current Condition Current Condition Evaluation Date 04/11/19 Treatment Diagnosis L4-S1 TLIF, acute hypercarbic resp failure, decreased activity tolerance Onset Date 04/10/19 Precautions Lumbar Precautions Log Roll,No Twisting,Limit Bending,Lifting Restriction of 10 lbs,Gait Belt above Incisional Area Other Precautions Droplet precaution Weight Bearing Status Weight Bearing Status Full Weight Bearing M3 PT-IP Subjective Start: 04/11/19 10:36 Freq: NEEDED Status: Active Protocol: Document 04/12/19 12:49 JESSICA (Rec: 04/12/19 15:44 [id number]) Subjective Physical Therapy Visit Type Type Treatment Note Visit Start Time 12:49 Visit Stop Time 13:07 Total Visit Minutes 18 Notes Pt in bathroom and [employer] in room . 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 Patient Goals Return home Therapy Pain Assessment Pain Present Pain Present Pain Reported M4 PT-IP Mobility and Gait Start: 04/11/19 10:36 Freq: NEEDED Status: Active Protocol: Document 04/12/19 12:49 JESSICA (Rec: 04/12/19 15:44 LJ [id number]) PT-Bed Mobility Assessment Rolling Type of Rolling Log Rolling,Roll to Left Level of Assist Standby Assistance Sit to Supine Sit to Supine Standby Assistance PT-Transfer Assessment Sit to and From Stand Sit to and from Stand Standby Assistance Equipment Transfer Assistive Device None,Gait Belt,Front Wheeled Walker Transfers Transfer Destination Bed Transfer Ability Level of Assist Standby Assistance Comments Mobility Comments Pt SBA for bed mobility and transfers. Came out of bathroom as [employer] was making bed . Pt using FWW. Gait Assessment Gait Gait Assistance Required: Standby Assistance Distance (Feet) 120 Able to Maintain Weight Bearing Status Yes During Gait Assistive Devices Assistive Device None,Gait Belt,Front Wheeled Walker Gait Deviations General Gait Pattern Decreased Stride Length, Decreased Feet Clearance Factors Limiting Gait Function Factors Limiting Gait Function Decreased Activity Tolerance, Decreased Strength,Limited Range of Motion,Pain,Poor Balance Comments Gait Comments Pt ambulated in hallway SBA then walked into room and walked around room w/o AD. Pt was steady with good posture. Returned to bed SBA. M5 PT-IP Objective Assessments Start: 04/11/19 10:36 Freq: NEEDED Status: Active Protocol: Document 04/11/19 09:40 HH (Rec: 04/11/19 11:05 HH [id number]) Orientation Orientation/Cognition Level of Alertness Alert Orientation Name,Age,Birthday,Month,Date, Year,Day of Week,Place, Situation Language Function Ability No Deficits Noted Safety Awareness Understands Safety Issues Memory Description Short Term Impaired Comments Pt needed multiple reminders of post op precautions (BLT) , but she was able to state I have to stay up straight Gross Range of Motion Upper Extremity ROM Assessment Within Functional Limits Lower Extremity ROM Assessment Within Functional Limits Strength Upper Extremity Strength Assessment Within Functional Limits Lower Extremity Strength Assessment Bilaterally Impaired Hip 4/5 Knee 4/5 Coordination Assessment Gross Coordination Gross Coordination WNL Sensation Assessment Sensation Gross Sensation WNL Muscle Tone Muscle Tone WNL Yes M6 PT-IP Treatment Start: 04/11/19 10:36 Freq: NEEDED Status: Active Protocol: Document 04/12/19 11:32 DCW (Rec: 04/12/19 12:24 DCW [id number]) Physical Therapy Treatment Education Education Provided Precautions,Safety Other Treatments Other Treatment Performed , M7 PT-IP Assessment and Plan Start: 04/11/19 10:36 Freq: NEEDED Status: Active Protocol: Document 04/12/19 12:49 LJ (Rec: 04/12/19 15:44 LJ [id number]) PT Summary Assessment and Plan Potential Rehabilitation Potential Good Status of Condition at Evaluation Evolving Summary Impairments Pain,ROM,Strength,Balance, Cognition,Bed Mobility, Transfers,Gait,Activity Tolerance Assessment Summary Pt performed ambulation in room and in hallway with safety using FWW and without FWW. Followed precautions when returning to bed. Goals Bed Mobility Goal Standby Assistance Transfer Goal Standby Assistance,Front Wheeled Walker Gait Goal Standby Assistance,Front Wheel Walker Gait Distance 200 Days to Meet Goals 5 Frequency of Treatment Frequency Of Treatment Twice a Day Treatment Plan Physical Therapy Treatment Plan Bed Mobility Training,Transfer Training,Gait Training, Therapeutic Exercise,Balance Retraining,Post Op Education, Discharge Planning,Hot or Cold Pack,Neuromuscular Re-ed Other Recommendations and Next Treatment Monitor VSS Focus Review precautions CG training Recommendations To Nursing Amount of Assist Needed Standby Assistance,1 Person Assist Discharge Recommendations PT Discharge Recommendations Home with Assistance,Home Health
--- NOTE | 2019-04-12 18:42 | PC.NURSE ---
Addendum entered by [place] R.N. 04/12/19 22:44: 2125 - Pt resting in bed. Reports pain improved to 4 of 10 following. Continues to be intermittently confused. Reinforced safety and call light use. Bed alarm on. Original Note: 1830 - Pt awakes from a sound sleep. Disoriented to day/night. Reorients easily. SBA with fww and gaitbelt into the bathroom. To assess pain following activity.
--- NOTE | 2019-04-12 19:46 | P.PN_ITS ---
Subjective Subjective Date Patient Seen: 04/12/19 Time Patient Seen: 19:46 Interval history: POD 2 s/p TLIF with Dr. Whiting (after surgery patient had respiratory failure and was transferred to ICU, where she stabilized). Patient complains of pain in lower back, in incision site. Pain is well managed. Mobilizing well with PT. No other complaints. Patient denies fever, chills, nausea, vomiting, chest pain, shortness of breath, calf pain. Exam Vital Signs (past 8 hours): - 04/12/19 12:00 04/12/19 19:13 Temperature 99.7 F H 101.3 F H Pulse Rate 90 99 H Respiratory Rate 16 21 Blood Pressure 134/58 L 123/66 Pulse Oximetry 94 95 Oxygen Delivery Method Nasal Cannula Oxygen Flow Rate 1 Narrative Exam Narrative: 73 year old female is laying comfortably in bed, in no apparent distress. Dressing CDI. Able to actively dorsiflex/plantar flex bl. Sensory function grossly intact to light touch in LE bl. Dorsalis pedis 2+ bl. Capillary refill LE bl. Calves warm, soft, compressible, nttp. Objective Labs Result Diagrams: 04/12/19 04:48 04/12/19 04:48 Labs: Laboratory Results - last 24 hr 04/12/19 04/12/19 04/12/19 04:48 04:48 04:48 WBC 12.9 H RBC 3.82 L Hgb 10.9 L Hct 32.4 L MCV 84.9 MCH 28.6 MCHC 33.7 RDW 12.4 Plt Count 174 Neut % (Auto) 78.7 H Lymph % (Auto) 13.1 L [place] % (Auto) 8.1 Eos % (Auto) 0.0 L Baso % (Auto) 0.1 Neut # (Auto) 99606 H Lymph # (Auto) 1700 [place] # (Auto) 1100 H Eos # (Auto) 0 Baso # (Auto) 0 Sodium 140 Potassium 3.8 Chloride 105 Carbon Dioxide 31 BUN 12 Creatinine 0.70 Estimated GFR > 60.0 BUN/Creatinine Ratio 17.1 Glucose 125 H Calcium 7.9 L Procalcitonin 0.24 Assessment & Plan Post-op Postoperative Procedures: Procedures Operation Date: 04/10/19 10:45 Actual Procedures Side Surgeon p L4-5,L5-S1 TLIF w/ posterior instrumentatoion Vance Whiting MD Postoperative status narrative: Patient is medically stable. Respiratory failure secondary to opioids resolved. Continue current pain management Continue PT/OT Patient can likely discharge home in next 24-48 hours. Time Spent With Patient Time with patient: less than 15 minutes Quality VTE Deep Vein Thrombosis/Pulmonary Embolism Present on Admission: No
[2019-04-12] MEDS: VENLAFAXINE 37.5 MG TABLET PO (19:59)
[2019-04-12] MEDS: ATORVASTATIN 10 MG TABLET PO (19:59)
[2019-04-12] MEDS: LEVOTHYROXINE 75 MCG TABLET PO (19:59)
[2019-04-12] MEDS: MAGNESIUM HYDROXIDE 30 ML UDC PO (20:07)
[2019-04-12] MEDS: DOCUSATE 100 MG CAPSULE PO (20:07)
[2019-04-12] MEDS: OXYCODONE IR 5 MG TABLET PO (23:53)
[2019-04-13] MEDS: OXYCODONE IR 5 MG TABLET PO ×3 (03:38→17:21)
[2019-04-13 05:22] LABS: Add Manual Diff / Slide Review NO; Basophils Absolute Auto 0 /uL (0-100); Basophils Percent Auto 0.2 % (0-2); Eosinophils Absolute Auto 0 /uL (0-450); Eosinophils Percent Auto 0.2 % (2-4); Hematocrit 30.6 % (36-46); Hemoglobin 10.5 g/dL (12.0-16.0); Lymphocytes Absolute Auto 1700 /uL (1100-4500); Lymphocytes Percent Auto 15.4 % (25-40); Mean Corpuscular HGB Conc 34.4 % (30-36); Mean Corpuscular Hemoglobin 28.9 PG (26-34); Mean Corpuscular Volume 84.2 fL (80-100); Monocytes Absolute Auto 800 /uL (0-900); Monocytes Percent Auto 7.2 % (3-14); Neutrophils Absolute Auto 8600 /uL (1500-7000); Platelet Count 192 X10^3/uL (150-400); Red Blood Cell Count 3.64 X10^6/uL (4.0-5.2); Red Cell Distribution Width 12.1 % (11.6-14.8); White Blood Cell Count 11.2 X10^3/uL (4.5-11.0)
[2019-04-13 05:28] LABS: BUN Creatinine Ratio 17.1 (6-22); Blood Urea Nitrogen 12 mg/dL (7-17); Calcium 7.8 mg/dL (8.4-10.2); Carbon Dioxide 33 mmol/L (22-32); Chloride 101 mmol/L (98-107); Estimated Glomerular Filt Rate > 60.0 mL/min (>60); Glucose 100 mg/dL (80-110); HEMOLYSIS < 15 (0-50); Potassium 3.6 mmol/L (3.4-5.1); Sodium 139 mmol/L (137-145)
[2019-04-13 05:48] LABS: Procalcitonin 0.12 ng/mL (<0.5)
[2019-04-13 07:40] VITALS: O2SAT 93
[2019-04-13] MEDS: POLYETHYLENE GLYCOL 3350 17 GM POWD.PACK PO (07:42)
[2019-04-13] MEDS: ACETAMINOPHEN 325 MG TABLET 650 MG PO ×2 (07:42→12:14)
[2019-04-13] MEDS: OXYCODONE IR 5 MG TABLET 10 MG PO ×2 (07:42→21:21)
[2019-04-13 08:37] VITALS: BP 124/64; PULSE 86; RESP 16; TEMP 36.6; O2SAT 93
--- NOTE | 2019-04-13 09:40 | PC.NURSE ---
pt ambulate in the hallway with a stand by asst
--- NOTE | 2019-04-13 10:28 | PM.PN.1 ---
Subjective Subjective Date Patient Seen: 04/13/19 Time Patient Seen: 10:28 Interval history: POD 3 s/p TLIF with Dr. Whiting (after surgery patient had respiratory failure and was transferred to ICU, where she stabilized). Patient complains of pain in lower back, in incision site. Pain is well managed. Mobilizing well with PT. No other complaints. Patient denies fever, chills, nausea, vomiting, chest pain, shortness of breath, calf pain. Exam Vital Signs (past 8 hours): - 04/13/19 07:40 04/13/19 08:37 Temperature 97.8 F Pulse Rate 86 Respiratory Rate 16 Blood Pressure 124/64 Pulse Oximetry 93 93 Oxygen Delivery Method Room Air Oxygen Flow Rate 0 Narrative Exam Narrative: Sitting up in chair, comfortbale, in no apparent distress. Dressing CDI. Able to actively dorsiflex/plantar flex bl. Sensory function grossly intact to light touch in LE bl. Dorsalis pedis 2+ bl. Capillary refill LE bl. Calves warm, soft, compressible, nttp. Objective Labs Result Diagrams: 04/13/19 04:38 04/13/19 04:38 Labs: Laboratory Results - last 24 hr 04/13/19 04/13/19 04/13/19 04:38 04:38 04:38 WBC 11.2 H RBC 3.64 L Hgb 10.5 L Hct 30.6 L MCV 84.2 MCH 28.9 MCHC 34.4 RDW 12.1 Plt Count 192 Neut % (Auto) 77.0 H Lymph % (Auto) 15.4 L [place] % (Auto) 7.2 Eos % (Auto) 0.2 L Baso % (Auto) 0.2 Neut # (Auto) 8600 H Lymph # (Auto) 1700 [place] # (Auto) 800 Eos # (Auto) 0 Baso # (Auto) 0 Sodium 139 Potassium 3.6 Chloride 101 Carbon Dioxide 33 H BUN 12 Creatinine 0.70 Estimated GFR > 60.0 BUN/Creatinine Ratio 17.1 Glucose 100 Calcium 7.8 L Procalcitonin 0.12 Assessment & Plan Assessment & Plan narrative: Patient is doing well at this time. Respiratory failure has resolved. Medicine has signed off. Patient continues to work with physical therapy and progress. Pain is well controlled. Anticipate discharge home tomorrow. Quality VTE Deep Vein Thrombosis/Pulmonary Embolism Present on Admission: No
--- NOTE | 2019-04-13 11:08 | PT.IPTN ---
Current Diagnoses Spondylolisthesis, lumbosacral region (04/10/19) Spinal stenosis, lumbar region without neurogenic claudication (04/10/19) Surgery Performed Operation Date: 04/10/19 10:45 Actual Procedures p L4-5,L5-S1 TLIF w/ posterior instrumentatoion - Vance Whiting MD Physical Therapy Treatment Note M2 PT-IP Current Condition Start: 04/11/19 10:36 Freq: NEEDED Status: Active Protocol: Document 04/11/19 09:40 HH (Rec: 04/11/19 11:05 HH [email or web address]) Physical Therapy Current Condition Current Condition Evaluation Date 04/11/19 Treatment Diagnosis L4-S1 TLIF, acute hypercarbic resp failure, decreased activity tolerance Onset Date 04/10/19 Precautions Lumbar Precautions Log Roll,No Twisting,Limit Bending,Lifting Restriction of 10 lbs,Gait Belt above Incisional Area Other Precautions Droplet precaution Weight Bearing Status Weight Bearing Status Full Weight Bearing M3 PT-IP Subjective Start: 04/11/19 10:36 Freq: NEEDED Status: Active Protocol: Document 04/13/19 10:53 CLB (Rec: 04/13/19 12:55 CLB [id number]) Subjective Physical Therapy Visit Type Type Treatment Note Visit Start Time 10:53 Visit Stop Time 11:08 Total Visit Minutes 15 Number of CATEGORY CONSULTANT Visits 1 Physical Therapy Visit Comments Patient Comments Willing to walk in the hallway . Therapy Pain Assessment Pain Present Pain Present Pain Reported M4 PT-IP Mobility and Gait Start: 04/11/19 10:36 Freq: NEEDED Status: Active Protocol: Document 04/13/19 10:53 CLB (Rec: 04/13/19 12:55 CLB [id number]) PT-Transfer Assessment Sit to and From Stand Sit to and from Stand Standby Assistance Equipment Transfer Assistive Device Gait Belt,Front Wheeled Walker Transfers Transfer Destination Chair Transfer Ability Level of Assist Standby Assistance Comments Mobility Comments Pt is SBA for sit to stand. Left pt in reclined chair with all needs within reach, call light within reach. Gait Assessment Gait Gait Assistance Required: Standby Assistance Distance (Feet) 300 Able to Maintain Weight Bearing Status Yes During Gait Assistive Devices Assistive Device Gait Belt,Front Wheeled Walker Gait Deviations General Gait Pattern Decreased Stride Length, Decreased Feet Clearance Factors Limiting Gait Function Factors Limiting Gait Function Decreased Activity Tolerance, Decreased Strength,Limited Range of Motion,Pain,Poor Balance Comments Gait Comments Pt is SBA for gait with cues to watch obstacles in patiño. M5 PT-IP Objective Assessments Start: 04/11/19 10:36 Freq: NEEDED Status: Active Protocol: Document 04/11/19 09:40 HH (Rec: 04/11/19 11:05 HH [id number]) Orientation Orientation/Cognition Level of Alertness Alert Orientation Name,Age,Birthday,Month,Date, Year,Day of Week,Place, Situation Language Function Ability No Deficits Noted Safety Awareness Understands Safety Issues Memory Description Short Term Impaired Comments Pt needed multiple reminders of post op precautions (BLT) , but she was able to state I have to stay up straight Gross Range of Motion Upper Extremity ROM Assessment Within Functional Limits Lower Extremity ROM Assessment Within Functional Limits Strength Upper Extremity Strength Assessment Within Functional Limits Lower Extremity Strength Assessment Bilaterally Impaired Hip 4/5 Knee 4/5 Coordination Assessment Gross Coordination Gross Coordination WNL Sensation Assessment Sensation Gross Sensation WNL Muscle Tone Muscle Tone WNL Yes M6 PT-IP Treatment Start: 04/11/19 10:36 Freq: NEEDED Status: Active Protocol: Document 04/13/19 10:53 CLB (Rec: 04/13/19 12:55 CLB [id number]) Physical Therapy Treatment Exercises Exercises Gluteal Sets,Quad Sets Education Education Provided Precautions,Safety Other Treatments Other Treatment Performed Pt recalled 3/3 precautions. M7 PT-IP Assessment and Plan Start: 04/11/19 10:36 Freq: NEEDED Status: Active Protocol: Document 04/13/19 10:53 CLB (Rec: 04/13/19 12:55 CLB [id number]) PT Summary Assessment and Plan Summary Impairments Pain,ROM,Strength,Balance, Cognition,Bed Mobility, Transfers,Gait,Activity Tolerance Assessment Summary Pt able to ambulate ~300ft in pati[place] SBA with cues to watch obstacles in hallway. Pt is SBA for sit-stand. Goals Bed Mobility Goal Standby Assistance Transfer Goal Standby Assistance,Front Wheeled Walker Gait Goal Standby Assistance,Front Wheel Walker Gait Distance 200 Days to Meet Goals 5 Frequency of Treatment Frequency Of Treatment Twice a Day Treatment Plan Physical Therapy Treatment Plan Bed Mobility Training,Transfer Training,Gait Training, Therapeutic Exercise,Balance Retraining,Post Op Education, Discharge Planning,Hot or Cold Pack,Neuromuscular Re-ed Other Recommendations and Next Treatment Review precautions Focus CG training Recommendations To Nursing Amount of Assist Needed Standby Assistance,1 Person Assist Discharge Recommendations PT Discharge Recommendations Home with Assistance,Home Health
--- NOTE | 2019-04-13 14:17 | PT.IPTN ---
Current Diagnoses Spondylolisthesis, lumbosacral region (04/10/19) Spinal stenosis, lumbar region without neurogenic claudication (04/10/19) Surgery Performed Operation Date: 04/10/19 10:45 Actual Procedures p L4-5,L5-S1 TLIF w/ posterior instrumentatoion - Vance Whiting MD Physical Therapy Treatment Note M2 PT-IP Current Condition Start: 04/11/19 10:36 Freq: NEEDED Status: Active Protocol: Document 04/11/19 09:40 HH (Rec: 04/11/19 11:05 HH [id number]) Physical Therapy Current Condition Current Condition Evaluation Date 04/11/19 Treatment Diagnosis L4-S1 TLIF, acute hypercarbic resp failure, decreased activity tolerance Onset Date 04/10/19 Precautions Lumbar Precautions Log Roll,No Twisting,Limit Bending,Lifting Restriction of 10 lbs,Gait Belt above Incisional Area Other Precautions Droplet precaution Weight Bearing Status Weight Bearing Status Full Weight Bearing M3 PT-IP Subjective Start: 04/11/19 10:36 Freq: NEEDED Status: Active Protocol: Document 04/13/19 13:55 CLB (Rec: 04/13/19 16:05 CLB [id number]) Subjective Physical Therapy Visit Type Type Treatment Note Visit Start Time 13:55 Visit Stop Time 14:17 Total Visit Minutes 22 Number of PILLAR WORKER Visits 3 Physical Therapy Visit Comments Patient Comments Willing to walk in the hallway . M4 PT-IP Mobility and Gait Start: 04/11/19 10:36 Freq: NEEDED Status: Active Protocol: Document 04/13/19 13:55 CLB (Rec: 04/13/19 16:05 CLB [id number]) PT-Bed Mobility Assessment Rolling Type of Rolling Log Rolling,Roll to Right Level of Assist Standby Assistance Supine to Sit Supine to Sit Standby Assistance Sit to Supine Sit to Supine Standby Assistance Scooting Scooting to Edge of Bed Standby Assistance PT-Transfer Assessment Sit to and From Stand Sit to and from Stand Standby Assistance Equipment Transfer Assistive Device Gait Belt,Front Wheeled Walker Transfers Transfer Destination Bed,Chair Transfer Ability Level of Assist Standby Assistance Gait Assessment Gait Gait Assistance Required: Standby Assistance Distance (Feet) 300 Able to Maintain Weight Bearing Status Yes During Gait Assistive Devices Assistive Device Gait Belt,Front Wheeled Walker Gait Deviations General Gait Pattern Decreased Stride Length, Decreased Feet Clearance Factors Limiting Gait Function Factors Limiting Gait Function Decreased Activity Tolerance, Decreased Strength,Limited Range of Motion,Pain,Poor Balance Comments Gait Comments Pt improving gait quality with cues not to twist. M5 PT-IP Objective Assessments Start: 04/11/19 10:36 Freq: NEEDED Status: Active Protocol: Document 04/11/19 09:40 HH (Rec: 04/11/19 11:05 HH [id number]) Orientation Orientation/Cognition Level of Alertness Alert Orientation Name,Age,Birthday,Month,Date, Year,Day of Week,Place, Situation Language Function Ability No Deficits Noted Safety Awareness Understands Safety Issues Memory Description Short Term Impaired Comments Pt needed multiple reminders of post op precautions (BLT) , but she was able to state I have to stay up straight Gross Range of Motion Upper Extremity ROM Assessment Within Functional Limits Lower Extremity ROM Assessment Within Functional Limits Strength Upper Extremity Strength Assessment Within Functional Limits Lower Extremity Strength Assessment Bilaterally Impaired Hip 4/5 Knee 4/5 Coordination Assessment Gross Coordination Gross Coordination WNL Sensation Assessment Sensation Gross Sensation WNL Muscle Tone Muscle Tone WNL Yes M6 PT-IP Treatment Start: 04/11/19 10:36 Freq: NEEDED Status: Active Protocol: Document 04/13/19 10:53 CLB (Rec: 04/13/19 12:55 CLB [id number]) Physical Therapy Treatment Exercises Exercises Gluteal Sets,Quad Sets Education Education Provided Precautions,Safety Other Treatments Other Treatment Performed Pt recalled 3/3 precautions. M7 PT-IP Assessment and Plan Start: 04/11/19 10:36 Freq: NEEDED Status: Active Protocol: Document 04/13/19 13:55 CLB (Rec: 04/13/19 16:05 CLB [id number]) PT Summary Assessment and Plan Summary Progress Towards Goals Goals Met Assessment Summary Pt present for CG training. Pt's able to appropriately assist pt with back precautions and assist pt in and out of bed. Pt has meet goals and seems able to d /c home with assist when medically stable. Goals Transfer Goal Standby Assistance,Front Wheeled Walker Gait Goal Standby Assistance,Front Wheel Walker Gait Distance 200 Days to Meet Goals 5 Frequency of Treatment Frequency Of Treatment Twice a Day Treatment Plan Physical Therapy Treatment Plan Bed Mobility Training,Transfer Training,Gait Training, Therapeutic Exercise,Balance Retraining,Post Op Education, Discharge Planning,Hot or Cold Pack,Neuromuscular Re-ed Other Recommendations and Next Treatment gait Focus Recommendations To Nursing Amount of Assist Needed Standby Assistance,1 Person Assist Discharge Recommendations PT Discharge Recommendations Home with Assistance,Home Health
[2019-04-13 16:00] VITALS: O2SAT 95
[2019-04-13 16:34] VITALS: BP 121/54; PULSE 86; RESP 17; TEMP 37.1; O2SAT 98
[2019-04-13] MEDS: hydrOXYzine pamoate 25 MG CAPSULE PO ×2 (17:21→21:21)
[2019-04-13 20:33] VITALS: O2SAT 95
[2019-04-13] MEDS: LEVOTHYROXINE 75 MCG TABLET PO (20:58)
[2019-04-13] MEDS: MAGNESIUM HYDROXIDE 30 ML UDC PO (20:58)
[2019-04-13] MEDS: ATORVASTATIN 10 MG TABLET PO (20:59)
[2019-04-13] MEDS: VENLAFAXINE 37.5 MG TABLET PO (20:59)
[2019-04-13] MEDS: DOCUSATE 100 MG CAPSULE PO (20:59)
[2019-04-14 00:13] VITALS: BP 139/64; PULSE 96; RESP 18; TEMP 37.2; O2SAT 94
[2019-04-14] MEDS: OXYCODONE IR 5 MG TABLET 10 MG PO ×3 (00:27→12:20)
[2019-04-14 00:38] VITALS: O2SAT 94
[2019-04-14 07:47] VITALS: BP 124/59; PULSE 87; RESP 16; TEMP 37.3; O2SAT 94
[2019-04-14] MEDS: MAGNESIUM HYDROXIDE 30 ML UDC PO (07:54)
[2019-04-14] MEDS: DOCUSATE 100 MG CAPSULE PO (07:54)
[2019-04-14] MEDS: POLYETHYLENE GLYCOL 3350 17 GM POWD.PACK PO (07:54)
--- NOTE | 2019-04-14 10:15 | OT.IP.TRT ---
Current Diagnoses Spondylolisthesis, lumbosacral region (04/10/19) Spinal stenosis, lumbar region without neurogenic claudication (04/10/19) Surgery Performed Operation Date: 04/10/19 10:45 Actual Procedures p L4-5,L5-S1 TLIF w/ posterior instrumentatoion - Vance Whiting MD Occupational Therapy Treatment Note M2 OT-IP Current Condition Start: 04/11/19 16:07 Freq: Status: Active Protocol: Document 04/11/19 14:51 [facility] (Rec: 04/11/19 16:30 [facility] [id number]) Occupational Therapy Current Condition Current Condition Evaluation Date 04/11/19 Treatment Diagnosis S/p L4-5, L5-S1 TLIF with posterior instru. Diagnosis Onset Date 04/10/19 Post Operative Precautions Abdominal Surgery Precautions Log Roll,Lifting Restrictions, Gait Belt above Incisional Area Weight Bearing Status Weight Bearing Status Weight Bear as Tolerated M3 OT- IP Subjective and Pain Start: 04/11/19 16:07 Freq: Status: Active Protocol: Document 04/14/19 10:15 [facility] (Rec: 04/14/19 12:29 [facility] [id number]) OT- Subjective Occupational Therapy Visit Type Type Treatment Note Visit Start Time 10:15 Visit Stop Time 10:46 Total Visit Minutes 31 Occupational Therapy Visit Comments Patient Comments Pt wanting to get up and use the bathroom and not wanting to shower today. Patient/Caregiver Goals To go home. OT Pain Assessment Pain When Pain Assessed During Mobility Pain Present Pain Present Pain Reported M4 OT- IP ADL's Start: 04/11/19 16:07 Freq: Status: Active Protocol: Document 04/14/19 10:15 [facility] (Rec: 04/14/19 12:29 [facility] [id number]) OT ADL-Grooming General Evaluation Grooming Ability Independent Comments OT Grooming Comments While standing in front of the sink with FWW. OT ADL-Oral Care General Eval Oral Care Ability Independent OT ADL-Dressing General Eval Lower Body Dressing Ability Minimal Assistance Comments OT Dressing Comments Pt needing KETURAH to help pull up underwear so pt able to reach and with techinique to use one hand at a time to help pull up over her hips and one hand on the FWW for balance. Reminder pt to have pellet press operator attached to FWW to help with LB dressing or to assist. OT ADL-Toileting General Evaluation Toileting Ability Standby Assistance Comments OT Toileting Comments Set-up for wipes. M5 OT- IP IADL's Start: 04/11/19 16:07 Freq: Status: Active Protocol: Document 04/11/19 14:51 [facility] (Rec: 04/11/19 16:30 [facility] [id number]) OT-Instrumental Activities of Daily Living Home Safety Awareness Awareness of Need for Assistance at Home Good Awareness Ability to Problem Solve Emergency Able to Problem Solve Situations Tumbler Drier Operator Tumbler Drier Operator Comments Pt's able to assist for IADL needs. M6 OT- IP Functional Cognition Start: 04/11/19 16:07 Freq: Status: Active Protocol: Document 04/11/19 14:51 [facility] (Rec: 04/11/19 16:30 [facility] [id number]) Cognitive Factors Limiting Selfcare Function Cognitive Ability Level of Alertness Alert Patient Orientation Name,Age,Birthday,Month,Date, Year,Day of Week,Place, Situation Attention Span Ability Capable of Focused Attention, Capable of Sustained Attention Ability to Follow Commands Able to Follow One Step Commands Safety Awareness Underestimates Need for Assistance Cognitive Comments Cognitive Assessment Comments Pt just needing reminders to keep the FWW in front of her at all times. Pt able to states all back precautions and follow for mobility needs. OT- Vision and Hearing OT- Hearing Assessment OT- Hearing Assessment WFL OT- Vision Assessment Visual Acuity Glasses For Reading M7 OT- IP Mobility and Balance Start: 04/11/19 16:07 Freq: Status: Active Protocol: Document 04/14/19 10:15 [facility] (Rec: 04/14/19 12:29 [facility] [email or web address]) OT- Bed Mobility Assessment Rolling Type of Rolling Roll to Right Level of Assistance Standby Assistance Supine to Sit Supine to Sit Assist Standby Assistance Sit to Supine Sit to Supine Assist Standby Assistance Scooting Scooting to Edge of Bed Standby Assistance Scooting Up and Down in Bed Standby Assistance OT-Transfer Assessment Sit to and From Stand Sit to and from Stand Standby Assistance,Contact Guard Assistance Transfers Transfer Ability Contact Guard Assistance Technique Transfer Destination Bed,Toilet Transfer Technique Stand Step Pivot Devices Transfer Assistive Devices Gait Belt Comments Mobility Comments Pt able to do log rolling without the bed rail today. OT- Gait Assessment Gait Gait Assistance Required: Standby Assistance Assistive Devices Assistive Device Gait Belt OT- Balance Assessment Sitting Balance and Reactions Static Sitting Balance Ability Good Dynamic Sitting Balance Ability Fair M8 OT- IP Objective Assessments Start: 04/11/19 16:07 Freq: Status: Active Protocol: Document 04/11/19 14:51 [facility] (Rec: 04/11/19 16:30 [facility] [email or web address]) OT Gross Range of Motion Upper Extremity Range of Motion Assessment Within Functional Limits ROM Impairments WFL for needs however at times decreased at end ranges when having brusitis of her shoulders R > L. OT Strength Upper Extremity Strength Assessment Within Functional Limits OT-Muscle Tone Assessment Muscle Tone WNL Yes M9 OT- IP Assessment and Plan Start: 04/11/19 16:07 Freq: Status: Active Protocol: Document 04/14/19 10:15 [facility] (Rec: 04/14/19 12:29 [facility] [id number]) OT Summary Assessment and Plan Potential Rehabilitation Potential Good Analytic Complexity at Evaluation Low Summary OT Impairments Pain,Balance,Functional Mobility,Dressing,Toileting, Bathing,Toilet Transfers, Shower Transfers Progress Towards Goals Progressing Toward Goals Assessment Summary Pt looking to go home today. Pt states has gotten [facility] and will be able to assist her at home. Goals Grooming Goal Independent Dressing Goal Standby Assistance Toileting Goal Standby Assistance Bathing Goal Contact Guard Assistance Toilet Transfer Goal Standby Assistance Shower Transfer Goal Contact Guard Assistance Patient/Caregiver Education Goal Demonstrate Post-Op Precautions,Caregiver Independent Assisting Patient Days to Meet Goals 1 Frequency of Treatment Frequency Of Treatment Once a Day Treatment Plan OT Treatment Plan ADL Training,Functional Mobility,Patient/Family Education,Discharge Planning Discharge Recommendations OT Discharge Recommendations Home with Assistance
--- NOTE | 2019-04-14 12:02 | PT.IPTN ---
Current Diagnoses Spondylolisthesis, lumbosacral region (04/10/19) Spinal stenosis, lumbar region without neurogenic claudication (04/10/19) Surgery Performed Operation Date: 04/10/19 10:45 Actual Procedures p L4-5,L5-S1 TLIF w/ posterior instrumentatoion - Vance Whiting MD Physical Therapy Treatment Note M2 PT-IP Current Condition Start: 04/11/19 10:36 Freq: NEEDED Status: Active Protocol: Document 04/11/19 09:40 HH (Rec: 04/11/19 11:05 [id number]) Physical Therapy Current Condition Current Condition Evaluation Date 04/11/19 Treatment Diagnosis L4-S1 TLIF, acute hypercarbic resp failure, decreased activity tolerance Onset Date 04/10/19 Precautions Lumbar Precautions Log Roll,No Twisting,Limit Bending,Lifting Restriction of 10 lbs,Gait Belt above Incisional Area Other Precautions Droplet precaution Weight Bearing Status Weight Bearing Status Full Weight Bearing M3 PT-IP Subjective Start: 04/11/19 10:36 Freq: NEEDED Status: Active Protocol: Document 04/14/19 11:45 [facility] (Rec: 04/14/19 12:15 CLB [id number]) Subjective Physical Therapy Visit Type Type Treatment Note Visit Start Time 11:45 Visit Stop Time 12:02 Total Visit Minutes 17 Number of SUPPLY CHAIN LOGISTICS MANAGER Visits 4 Physical Therapy Visit Comments Patient Comments Willing to walk in the hallway . Therapy Pain Assessment Pain When Pain Assessed During Mobility Pain Present Pain Present Pain Reported Location lower back -bilateral legs Intensity 6 Scale Used Numeric (1 - 10) Pain Management Techniques Modification of Treatment, Timing of Activity with Medications M4 PT-IP Mobility and Gait Start: 04/11/19 10:36 Freq: NEEDED Status: Active Protocol: Document 04/14/19 11:45 [facility] (Rec: 04/14/19 12:15 CLB [id number]) PT-Bed Mobility Assessment Rolling Type of Rolling Log Rolling,Roll to Right Level of Assist Independent Supine to Sit Supine to Sit Independent Scooting Scooting to Edge of Bed Independent PT-Transfer Assessment Sit to and From Stand Sit to and from Stand Standby Assistance Equipment Transfer Assistive Device Gait Belt,Front Wheeled Walker Transfers Transfer Destination Chair Transfer Ability Level of Assist Standby Assistance Gait Assessment Gait Gait Assistance Required: Standby Assistance Distance (Feet) 300 Able to Maintain Weight Bearing Status Yes During Gait Assistive Devices Assistive Device Gait Belt,Front Wheeled Walker Gait Deviations General Gait Pattern Decreased Stride Length, Decreased Feet Clearance Factors Limiting Gait Function Factors Limiting Gait Function Decreased Activity Tolerance, Decreased Strength,Limited Range of Motion,Pain Comments Gait Comments Pt is SBA with cues for posture. M5 PT-IP Objective Assessments Start: 04/11/19 10:36 Freq: NEEDED Status: Active Protocol: Document 04/11/19 09:40 HH (Rec: 04/11/19 11:05 HH [email or web address]) Orientation Orientation/Cognition Level of Alertness Alert Orientation Name,Age,Birthday,Month,Date, Year,Day of Week,Place, Situation Language Function Ability No Deficits Noted Safety Awareness Understands Safety Issues Memory Description Short Term Impaired Comments Pt needed multiple reminders of post op precautions (BLT) , but she was able to state I have to stay up straight Gross Range of Motion Upper Extremity ROM Assessment Within Functional Limits Lower Extremity ROM Assessment Within Functional Limits Strength Upper Extremity Strength Assessment Within Functional Limits Lower Extremity Strength Assessment Bilaterally Impaired Hip 4/5 Knee 4/5 Coordination Assessment Gross Coordination Gross Coordination WNL Sensation Assessment Sensation Gross Sensation WNL Muscle Tone Muscle Tone WNL Yes M6 PT-IP Treatment Start: 04/11/19 10:36 Freq: NEEDED Status: Active Protocol: Document 04/13/19 10:53 CLB (Rec: 04/13/19 12:55 CLB [id number]) Physical Therapy Treatment Exercises Exercises Gluteal Sets,Quad Sets Education Education Provided Precautions,Safety Other Treatments Other Treatment Performed Pt recalled 3/3 precautions. M7 PT-IP Assessment and Plan Start: 04/11/19 10:36 Freq: NEEDED Status: Active Protocol: Document 04/14/19 11:45 [facility] (Rec: 04/14/19 12:15 CLB [id number]) PT Summary Assessment and Plan Summary Assessment Summary Pt is IND with bed mobility and SBA for all other mobility . Pt recalls 3/3 back precautions. Pt seems able to d/c home with assist of . Goals Bed Mobility Goal Standby Assistance Transfer Goal Standby Assistance,Front Wheeled Walker Gait Goal Standby Assistance,Front Wheel Walker Days to Meet Goals 5 Frequency of Treatment Frequency Of Treatment Twice a Day Treatment Plan Physical Therapy Treatment Plan Bed Mobility Training,Transfer Training,Gait Training, Therapeutic Exercise,Balance Retraining,Post Op Education, Discharge Planning,Hot or Cold Pack,Neuromuscular Re-ed Recommendations To Nursing Amount of Assist Needed Standby Assistance,1 Person Assist Discharge Recommendations PT Discharge Recommendations Home with Assistance,Home Health
--- NOTE | 2019-04-14 12:05 | PM.DS.1 ---
History of Present Illness History of Present Illness Date Patient Seen: 04/14/19 Time Patient Seen: 12:06 Chief complaint: Translaminar Interbody Fusion/Laminotomy Narrative: Patient's pain is [id number]. Denies fever chills. No shortness of breath or chest pain. Patient feels ready to be discharged home today. Her is home in available to assist her. Discharge Providers Provider Date of admission: 04/10/19 08:39 Discharge Date: 04/14/19 Primary care physician: Yemi Martin MD Consults: 04/10/19 17:38 Consult to Occupational Therapy Evaluate & Treat Comment: Physician Instructions: Evaluate and treat Consult to Physical Therapy Evaluate & Treat Comment: Physician Instructions: Evaluate and Treat 04/10/19 19:30 Consult to Respiratory Therapy Evaluate & Treat Comment: Pt is post op s/p Lumbar spine surgery. Physician Instructions: Evaluate and treat 04/10/19 19:32 Consult to Hospitalist Service Routine Comment: Spoke with Dr. Abernathy today. Consulting Provider: [facility] Reason for consultation: status post Lumbar spine surgery and is convalescing from a recent URI. Has provider been notified: Yes 04/10/19 20:03 Consult to Hospitalist Service Routine Comment: Consulting Provider: Santiago Curtis Reason for consultation: Rapid Response 04/10/19 20:58 Consult to Respiratory Therapy Evaluate & Treat Comment: Physician Instructions: Evaluate and treat Discharge provider: Kristopher Baez PA-C Summary Hospital Course Discharge Diagnosis: Pre-op diagnosis: 1. L4-5, L5-S1 spinal stenosis 2. L4-5, L5-S1 spondylosis with radiculopathy Post-op diagnosis: same Hospital Course: Procedure & Clinicians Procedure: 1. L4-5, L5-S1 Postero-lateral and posterior interbody fusion 2. L4-5, L5-S1 interbody cage placement. 3. L4-5, L5-S1 decompressive laminectomy with bilateral facetecomies 4. L4-5, L5-S1 Posterior segmental instrumentation 5. [place] of bone marrow from iliac crest 6. Utilization of microsurgical technique and operating microscope Same procedure as scheduled: Yes Indications: Patient has been having chronic back pain and worsening lumbar radiculopathy. Patient failed multiple conservative management with worsening pain weakness and numbness in her lower extremity. Patient has been having difficulty performing activity of daily living. After discussing risks benefits of treatment options, patient elected proceed with surgery. Surgeon: Vance Whiting Box Tender: Fozia Nelson Click Yes if Unassisted: No Anesthesia Type: General Operative Notes Closure Type: primary Specimen(s): none sent Prosthetic devices, grafts, tissues, transplants, or devices: Globus revolve screws, Rise cages Applied: catheter Estimated Blood Loss (mL): 100 Blood products transfused: none Patient admitted to the hospital for the above-mentioned procedure. Patient consented for the same. Patient taken to the OR and underwent lumbar fusion. Patient taken back to her room after surgery. Rapid response team called for acute hypoxemic hypercarbic respiratory failure. Patient received significant sedation during her operative procedure and developed respiratory failure. She has responded to treatment. Patient likely has obstructive sleep apnea, patient has been observed to desaturate at night. Hospitalist has recommended outpatient sleep study for further evaluation to determine if patient need CPAP therapy. Patient continue to be medically stable and hospitalist signed off on 04/12/2019. Patient has continued to progress and will be discharged home today in stable condition. Status at Discharge Cognitive/behavioral status at discharge: oriented Functional status at discharge: uses cane/walker Overall status at discharge: patient is progressing back to baseline Exam Vital Signs (past 8 hours): - 04/14/19 07:47 Temperature 99.2 F Pulse Rate 87 Respiratory Rate 16 Blood Pressure 124/59 L Pulse Oximetry 94 Oxygen Delivery Method Nasal Cannula Oxygen Flow Rate 0 Narrative Exam Narrative: Pleasant 73-year-old female walking with physical therapy in the [place]. Lumbar dressing is clean, dry and intact. Neurovascular status is intact to the bilateral lower extremities. Objective Labs Result Diagrams: 04/13/19 04:38 04/13/19 04:38 Discharge Plan Discharge Plan Patient Disposition: Home Discharge orders & Medications Prescriptions: New oxycodone 5 mg Tablet 5 mg PO Q3HR PRN (Reason: Pain, Moderate (4-6)) Qty: 40 RF: 0 hydroxyzine pamoate 25 mg Capsule 25 mg PO Q4HR PRN (Reason: Nausea And Vomiting) Qty: 30 RF: 0 Continued celecoxib 200 mg Capsule 200 mg PO DAILY RF: 0 atorvastatin 10 mg Tablet 10 mg PO BEDTIME RF: 0 acetaminophen [Tylenol Arthritis Pain] 650 mg Tablet Extended Release 1,300 mg PO BID RF: 0 levothyroxine 75 mcg Tablet 75 mcg PO BEDTIME RF: 0 venlafaxine 37.5 mg Tablet 37.5 mg PO BEDTIME RF: 0 Follow up/Referrals: Yemi Martin MD [Primary Care Provider] - Vance Whiting MD [Physician] - Discharge Health Status Health Concerns: Probable obstructive sleep apnea. Patient should have outpatient sleep study for further evaluation. Multidrug resistant organism: No MDRO Diet/Activity/Treatments Diet: Diet as Tolerated Activity: Limit bending, twisting, lifting Cold/Heat Therapy: Ice as needed Skin/Wound/Dressing Care Report to your healthcare provider any signs of infection, such as:: chills, fever Dressing: Keep dressing clean and dry Discharge Data Primary Care Provider: Yemi Martin Quality VTE Deep Vein Thrombosis/Pulmonary Embolism Present on Admission: No
[2019-04-14 12:51] VITALS: O2SAT 95
--- NOTE | 2019-04-14 13:56 | PC.NURSE ---
PT DISCHARGED PER MD ORDER- REVIEWED POST-OP PLANS AND MEDICATION ORDERS WELL BOWEL CARE AND FOLLOW UP APPT TIMES- ALL QUESTIONS ANSWERED TO PTS/SPOUSES SATISFACTION. D/C TO HOME AT THIS TIME
== END 2019-04-14 14:00 | disposition home or self-care (01) | DRG 453 ==
LOC: AC 09:42 → ICU 04-11 11:17
PROVIDERS: Internal Medicine; Nurse Practitioner Gerontology; Admitting Provider Orthopaedic Surgery Orthopaedic Surgery of the Spine; PCP Family Medicine; Visit Provider Orthopaedic Surgery Orthopaedic Surgery of the Spine
PROC: 0SG00AJ Fusion of Lumbar Vertebral Joint with Interbody Fusion Device, Posterior Approach, Anterior Column, Open Approach (ICD-10-PCS; principal; 2019-04-10 10:45)
DX: M48.062 Spinal stenosis, lumbar region with neurogenic claudication (principal); J96.02 Acute respiratory failure with hypercapnia; J96.01 Acute respiratory failure with hypoxia; E87.2 Acidosis; R00.0 Tachycardia, unspecified; T40.2X5A Adverse effect of other opioids, initial encounter; Y92.230 Patient room in hospital as the place of occurrence of the external cause; B34.8 Other viral infections of unspecified site; M43.17 Spondylolisthesis, lumbosacral region; M48.07 Spinal stenosis, lumbosacral region; M47.27 Other spondylosis with radiculopathy, lumbosacral region; M47.26 Other spondylosis with radiculopathy, lumbar region; E03.9 Hypothyroidism, unspecified; F32.9 Major depressive disorder, single episode, unspecified; I45.10 Unspecified right bundle-branch block; E78.5 Hyperlipidemia, unspecified; G47.33 Obstructive sleep apnea (adult) (pediatric)
CPT/HCPCS: 36415; 36600; 71045; 72100; 76000; 80048; 81001; 82550; 82553; 82805; 83605; 83735; 84145; 84484; 85025; 86140; 87040; 87633; 87797; 93005; 94760; 97116; 97161; 97165; 97530; 97535; C1776; C9290; J0690; J1100; J1170; J2060; J2310; J2405; J2704; J3010; J7613